=== PATIENT | female | born 1985 | race Caucasian/White ===

== ENCOUNTER 2019-01-31 19:55 | Emergency (ER) | payer OTHER ==
[2019-01-31] MEDS ORDERED: DOXYCYCLINE 100 MG CAP PO ONE (20:54)
[2019-01-31] MEDS ORDERED: SMZ./TMP. 800/160 MG TABLET ONE (20:54)
[2019-01-31] MEDS ORDERED: LIDOCAINE 1% W/EPI 1:100,000 MDV 50 ML VIAL ONE (20:55)
--- NOTE | 2019-01-31 21:28 | ER ---
Nurse's Notes [facility] Name: Zuleyka De La Cruz Age: 34 yrs Sex: Female : 1985 Arrival Date: 01/31/2019 Time: 19:59 Bed 7 Private MD: Aaron Lopez E Diagnosis: Cutaneous abscess of buttock;Cellulitis of buttock Presentation: 01/31 20:05 Presenting complaint: Patient states: "I got bit by an ant and now its really infected" aj1 Reports abscess to her left butt cheek. Reports fever for the past 3 days. Transition of care: patient was not received from another setting of care. Onset of symptoms was January 2019. Risk Assessment: Do you want to hurt yourself or someone else? Patient reports no desire to harm self or others. Initial Sepsis Screen: Does the patient meet any 2 criteria? HR > 90 bpm. No. Patient's initial sepsis screen is negative. Does the patient have a suspected source of infection? Yes: Skin breakdown/wound. Care prior to arrival: None. 20:05 Method Of Arrival: Ambulatory aj 20:05 Acuity: ADRY 4 aj1 Triage Assessment: 20:07 General: Appears in no apparent distress. comfortable, Behavior is calm, cooperative, aj1 appropriate for age. Pain: Complains of pain in buttocks Pain currently is 10 out of 10 on a pain scale. Neuro: Level of Consciousness is awake, alert, obeys commands. Cardiovascular: Patient's skin is warm and dry. Respiratory: Airway is patent Respiratory effort is even, unlabored, Respiratory pattern is regular, symmetrical. 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 - Social history:: Smoking status: Patient/guardian denies using tobacco. - Ebola Screening: : Patient denies travel to an Ebola-affected area in the 21 days before illness onset. - Family history:: not pertinent. Screenin:25 Abuse screen: Denies threats or abuse. Denies injuries from another. Nutritional rr5 screening: No deficits noted. Tuberculosis screening: No symptoms or risk factors identified. Fall Risk None identified. Total Willingham Fall Scale indicates No Risk (0-24 pts). Assessment: 22:05 General: Appears in no apparent distress. Behavior is calm, cooperative, appropriate ea for age. Pain: Complains of pain in left gluteus soraya. Neuro: Level of Consciousness is awake, alert, obeys commands, Oriented to person, place, time, situation. Cardiovascular: Patient's skin is warm and dry. Respiratory: Airway is patent Respiratory effort is even, unlabored, Respiratory pattern is regular, symmetrical. Derm: Abscess located on left gluteus soraya is half dollar sized, is red, is raised. 22:27 Reassessment: Patient appears in no apparent distress at this time. Patient is alert, rr5 oriented x 3, equal unlabored respirations, skin warm/dry/pink. discharge instruction given and explained without complaints made. verbalized understanding. Patient states feeling better. Patient states symptoms have improved. Vital Signs: 20:07 BP 125 / 87; Pulse 103; Resp 20; Temp 98.1; Pulse Ox 99% on R/A; Weight 83.91 kg (R); aj1 Height 5 ft. 3 in. (160.02 cm) (R); Pain 10/10; 21:00 BP 118 / 70; Pulse 95; Resp 17; Pulse Ox 98% ; Pain 5/10; rr5 22:25 BP 121 / 67; Pulse 85; Resp 17; Pulse Ox 99% ; Pain 0/10; rr5 20:07 Body Mass Index 32.77 (83.91 kg, 160.02 cm) aj1 ED Course: 19:59 Patient arrived in ED. mr 19:59 Aaron Lopez MD is Private Physician. mr 20:06 Triage completed. aj1 20:07 Arm band placed on Patient placed in waiting room, Patient notified of wait time. aj1 20:32 Amanuel Webb MD is Attending Physician. opal 20:33 Rubin Gupta RN is Primary Nurse. rr5 21:00 Patient has correct armband on for positive identification. Placed in gown. Bed in low rr5 position. Call light in reach. Side rails up X2. 21:25 Aaron Lopez MD is Referral Physician. opal 21:25 Oren Caldera MD is Referral Physician. [facility] 22:05 Assist provider with I \\T\\ D: of an abscess on left left buttock Set up I\\T\\D tray. rr 5 Performed by Amanuel Webb MD Culture sent to lab. Wound packed. iodoform gauze, Dressing with Neosporin and 4X4s, tape Patient tolerated well. 22:30 Patient did not have IV access during this emergency room visit. rr5 Administered Medications: 20:59 Drug: Doxycycline 200 mg Route: PO; rr5 22:00 Follow up: Response: No adverse reaction rr5 20:59 Drug: Bactrim (160 mg-800 mg (DS) 1 tablet Route: PO; rr5 22:00 Follow up: Response: No adverse reaction rr5 22:05 Drug: Lidocaine-Epinephrine -1%: (1:100,000) 10 ml {Note: given by dr. webb.} rr5 Volume: 20 ml; Route: Infiltration; Outcome: 21:25 Discharge ordered by MD. [facility] 22:30 Discharged to home ambulatory. rr5 22:30 Condition: stable 22:30 Discharge instructions given to patient, Instructed on discharge instructions, follow up and referral plans. medication usage, Demonstrated understanding of instructions, follow-up care, medications, Prescriptions given X 3. 22:31 Patient left the ED. rr5 Addendum: 02/04/2019 09:55 Addendum: Culture Results: Positive wound culture. No further action required. Bacteria h b sensitive to prescribed antibiotic. Signatures: Abena Lucas, RN RN Amanuel Rico MD MD cha Rivera, Mary Katja Redding RN RN hb Antunez, Elena, RN RN ea Roque, Raymond, RN RN rr5
--- NOTE | 2019-01-31 21:29 | EDPHYS ---
Physician Documentation [facility] Name: Zuleyka De La Cruz Age: 34 yrs Sex: Female : 1985 Arrival Date: 01/31/2019 Time: 19:59 Bed 7 Private MD: Aaron Lopez E ED Physician Amanuel Webb HPI: 01/31 20:55 This 34 yrs old Female presents to ER via Ambulatory with complaints of opal Abscess. 20:55 The patient presents with an abscess of the left gluteus soraya. Description: The opal affected area is moderate sized, confluent. Onset: The symptoms/episode began/occurred 1 week(s) ago. Possible cause(s): fire ant bite. Associated signs and symptoms: The patient has no apparent associated signs or symptoms. Modifying factors: the symptoms are alleviated by remaining still, the symptoms are aggravated by movement, walking, pressure, sitting, squeezing the lesion and expressing the contents. Severity of symptoms: At their worst the symptoms were moderate, in the emergency department the symptoms are unchanged. The patient has not experienced similar symptoms in the past. 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 - Social history:: Smoking status: Patient/guardian denies using tobacco. - Ebola Screening: : Patient denies travel to an Ebola-affected area in the 21 days before illness onset. - Family history:: not pertinent. ROS: 20:55 Constitutional: Negative for fever, chills, and weight loss, Eyes: Negative for injury, opal pain, redness, and discharge, ENT: Negative for injury, pain, and discharge, Neck: Negative for injury, pain, and swelling, Cardiovascular: Negative for chest pain, palpitations, and edema, Respiratory: Negative for shortness of breath, cough, wheezing, and pleuritic chest pain, Abdomen/GI: Negative for abdominal pain, nausea, vomiting, diarrhea, and constipation, Back: Negative for injury and pain, : Negative for injury, bleeding, discharge, and swelling, MS/Extremity: Negative for injury and deformity, Neuro: Negative for headache, weakness, numbness, tingling, and seizure, Psych: Negative for depression, anxiety, suicide ideation, homicidal ideation, and hallucinations, Allergy/Immunology: Negative for hives, rash, and allergies, Endocrine: Negative for neck swelling, polydipsia, polyuria, polyphagia, and marked weight changes, Hematologic/Lymphatic: Negative for swollen nodes, abnormal bleeding, and unusual bruising. 20:55 Skin: Positive for cellulitis, swelling. Exam: 20:55 Constitutional: This is a well developed, well nourished patient who is awake, alert, opal and in no acute distress. Head/Face: Normocephalic, atraumatic. Eyes: Pupils equal round and reactive to light, extra-ocular motions intact. Lids and lashes normal. Conjunctiva and sclera are non-icteric and not injected. Cornea within normal limits. Periorbital areas with no swelling, redness, or edema. ENT: Nares patent. No nasal discharge, no septal abnormalities noted. Tympanic membranes are normal and external auditory canals are clear. Oropharynx with no redness, swelling, or masses, exudates, or evidence of obstruction, uvula midline. Mucous membranes moist. Neck: Trachea midline, no thyromegaly or masses palpated, and no cervical lymphadenopathy. Supple, full range of motion without nuchal rigidity, or vertebral point tenderness. No Meningismus. Chest/axilla: Normal chest wall appearance and motion. Nontender with no deformity. No lesions are appreciated. Cardiovascular: Regular rate and rhythm with a normal S1 and S2. No gallops, murmurs, or rubs. Normal PMI, no JVD. No pulse deficits. Respiratory: Lungs have equal breath sounds bilaterally, clear to auscultation and percussion. No rales, rhonchi or wheezes noted. No increased work of breathing, no retractions or nasal flaring. Back: No spinal tenderness. No costovertebral tenderness. Full range of motion. MS/ Extremity: Pulses equal, no cyanosis. Neurovascular intact. Full, normal range of motion. Neuro: Awake and alert, GCS 15, oriented to person, place, time, and situation. Cranial nerves II-XII grossly intact. Motor strength 5/5 in all extremities. Sensory grossly intact. Cerebellar exam normal. Normal gait. Psych: Awake, alert, with orientation to person, place and time. Behavior, mood, and affect are within normal limits. 20:55 Abdomen/GI: Inspection: abdomen appears normal, Bowel sounds: normal, Palpation: abdomen is soft and non-tender, in all quadrants, Liver: no appreciated palpable abnormalities, Hernia: not appreciated. 20:55 Skin: abscess, cellulitis, that is mild, injury, is not appreciated. Vital Signs: 20:07 BP 125 / 87; Pulse 103; Resp 20; Temp 98.1; Pulse Ox 99% on R/A; Weight 83.91 kg (R); aj1 Height 5 ft. 3 in. (160.02 cm) (R); Pain 10/10; 21:00 BP 118 / 70; Pulse 95; Resp 17; Pulse Ox 98% ; Pain 5/10; rr5 22:25 BP 121 / 67; Pulse 85; Resp 17; Pulse Ox 99% ; Pain 0/10; rr5 20:07 Body Mass Index 32.77 (83.91 kg, 160.02 cm) [facility] MDM: 20:32 Patient medically screened. [facility] 21:05 Data reviewed: vital signs, nurses notes. [facility] 01/31 20:55 Order name: Wound Culture [facility] 01/31 20:55 Order name: Dressing - Wound; Complete Time: 22:23 [facility] 01/31 20:55 Order name: Gloves, Sterile; Complete Time: 22:23 [facility] 01/31 20:55 Order name: Setup Suture Tray; Complete Time: 20:56 [facility] Administered Medications: 20:59 Drug: Doxycycline 200 mg Route: PO; rr5 22:00 Follow up: Response: No adverse reaction rr5 20:59 Drug: Bactrim (160 mg-800 mg (DS) 1 tablet Route: PO; rr5 22:00 Follow up: Response: No adverse reaction rr5 22:05 Drug: Lidocaine-Epinephrine -1%: (1:100,000) 10 ml {Note: given by dr. webb.} rr5 Volume: 20 ml; Route: Infiltration; Disposition: 01/31/19 21:25 Discharged to Home. Impression: Cutaneous abscess of buttock, Cellulitis of buttock. - Condition is Stable. - Discharge Instructions: Skin Abscess, Cellulitis, Adult, Incision and Drainage, Skin Abscess, [id number], Cellulitis, Adult, [id number], Incision and Drainage, Care After. - Prescriptions for Tylenol- Codeine #3 300-30 mg Oral Tablet - take 2 tablets by ORAL route every 6 hours As needed; 24 tablet. Bactrim DS 800- 160 mg Oral Tablet - take 1 tablet by ORAL route every 12 hours for 10 days; 20 tablet. Doxycycline Monohydrate 100 mg Oral Tablet - take 1 tablet by ORAL route every 12 hours for 10 days; 20 tablet. - Medication Reconciliation Form, Thank You Letter, Antibiotic Education, Prescription Opioid Use form. - Follow up: Aaron Lopez; When: 2 - 3 days; Reason: Recheck today's complaints, Continuance of care, Re-evaluation by your physician. Follow up: Oren Caldera; When: 1 - 2 days; Reason: Recheck today's complaints, Re-evaluation by your physician. - Problem is new. - Symptoms have improved. 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 Impression: Cutaneous abscess of buttock; rr5 Cellulitis of buttock. Condition is Stable. Discharge Instructions: Skin Abscess, Cellulitis, Adult, Incision and Drainage, Skin Abscess, [id number], Cellulitis, Adult, [id number], Incision and Drainage, Care After. Prescriptions for Tylenol-Codeine #3 300-30 mg Oral Tablet - take 2 tablets by ORAL route every 6 hours As needed; 24 tablet, Bactrim DS 800-160 mg Oral Tablet - take 1 tablet by ORAL route every 12 hours for 10 days; 20 tablet, Doxycycline Monohydrate 100 mg Oral Tablet - take 1 tablet by ORAL route every 12 hours for 10 days; 20 tablet. and Forms are Medication Reconciliation Form, Thank You Letter, Antibiotic Education, Prescription Opioid Use. Follow up: Aaron Lopez; When: 2 - 3 days; Reason: Recheck today's complaints, Continuance of care, Re-evaluation by your physician. Follow up: Oren Caldera; When: 1 - 2 days; Reason: Recheck today's complaints, Re-evaluation by your physician. Problem is new. Symptoms have improved. opal
[2019-01-31 23:06] VITALS: TEMP 98.1
[2019-01-31 23:09] VITALS: BP 121/67; O2SAT 99
== END 2019-01-31 22:31 | disposition home or self-care (01) ==
LOC: ER 19:55
DX: L02.31 Cutaneous abscess of buttock (principal); L03.317 Cellulitis of buttock; Z88.1 Allergy status to other antibiotic agents
CPT/HCPCS: 87070; 87077; 87186; 87205; 99284

== ENCOUNTER 2022-02-09 13:49 | Emergency (ER) | payer OTHER ==
--- OUTSIDE RECORDS SUMMARY | 2022-02-09 13:55 | XMS REPORT | Continuity of Care Document ---
:1985 Author Organization [facility] t Address [address] [place] [address] Care Team Providers Name Role Phone Fer Dinero Attending Clinician Unavailable Provider, [facility] Attending Clinician Unavailable Garry BLOUNT, Karen Boateng Attending Clinician Hayley Mercado Attending Clinician HAYLEY KELLY Attending Clinician Unavailable Doctor Unassigned, [place] Attending Clinician Unavailable GISELA STUBBS Attending Clinician Unavailable Lab, Adc Fam Pob I Attending Clinician Unavailable Gisela Frank Attending Clinician Fer Dinero Admitting Clinician Unavailable Physician, No Primary or Family Admitting Clinician Unavaila ble Payers Payer Name Policy Type Policy Number Effective Date Expiration Date S ource Problems Condition Condition Condition Status Onset Resolution Last Treating Co mments Source Name Details Category Date Date Treatment Clinician Date No known No known Disease Unive rs active active ity of problems problems [facility] Allergies, Adverse Reactions, Alerts Allergy Allergy Status Severity Reaction(s) Onset Inactive Treating Comm ents Source Name Type Date Date Clinician Sulfa DA Active IN HIVES [facility] (Sulfona [address] [place] mide 00:00: [facility] Antibiot 00 are ics) Medical [place] Sulfa Propensi Active Hives Univers Dyne ty to 607 ity of adverse 00:00: [place] reaction 00 [facility] SULFA DRUG Active High Hives Univers DYNE 6-07 ity of 00:00: [place] 00 [facility] NO KNOWN Drug Active [facility] ALLERGIE Class ity of S [facility] Social History Social Habit Start Date Stop Date Quantity Comments Source Exposure to Not sure [facility] SARS-CoV-2 (event) Medica l [place] Tobacco use and 2020-10-26 2020-10-26 Never used [facility] exposure 00:00:00 00:00:00 [facility] Branch Sex Assigned At [birth year] [facility] 00:00:00 00:00:00 [facility] Branch Smoking Status Start Date Stop Date Source Never smoker [facility] Unknown if ever smoked [facility] Medications Ordered Filled Start Stop Current Ordering Indication Dosage Frequency Signature Comments Components Source Medication Medication Date Date Medication? Clinician (SIG) Name Name AlfonsoN 2020- No [id number] Take by [facility] ISolone 10-26 mouth ity of mg tablets 00:00: 04:59 SEE-INSTRU [place] 00 :00 CTIONS for Medical 6 days. Branch follow package directions SERTraline 2021- No 50mg Take 50 mg Univers (ZOLOFT) 50 10-19 by mouth ity of mg tablet 00:00: 04:59 daily. [place] 00 :00 [facility] SERTraline 2021- No 50mg Take 50 mg Univers (ZOLOFT) 50 10-19 by mouth ity of mg tablet 00:00: 04:59 daily. [place] 00 :00 [facility] bromphenira 2020- No [id number] 5mL Take 5 mL Univers mine-pseudo 10-19 by mouth 4 i ty of ephedrine-D 00:00: 04:59 (four) Rol[place] as M (BROMFED 00 :00 times Medical DM) 2-30-10 daily as Bran ch mg/5 mL needed for syrup Congestion /Allergies or Cough for up to 10 days. bromphenira 2020- No [id number] 5mL Take 5 mL Univers mine-pseudo 10-1918 by mouth 4 i ty of ephedrine-D 00:00: 04:59 (four) [place] as M (BROMFED 00 :00 times Medical DM) 2-30-10 daily as Bran ch mg/5 mL needed for syrup Congestion /Allergies or Cough for up to 10 days. amoxicillin 2020- No [id number] 500mg Take 1 Univers 500 mg 10-19 tablet by ity of tablet 00:00: 04:59 mouth 2 [place] 00 :00 (two) Medical times [place] daily for 7 days. amoxicillin 2020- No [id number] 500mg Take 1 Univers 500 mg 10-19 tablet by ity of tablet 00:00: 04:59 mouth 2 [place] 00 :00 (two) Medical times [place] daily for 7 days. Vital Signs Vital Name Observation Time Observation Value Comments Source Body weight 2020-10-26 20:12:00 89.359 kg [facility] BMI 2020-10-26 20:12:00 34.90 kg/m2 [facility] Oxygen saturation in 2020-10-26 20:12:00 99 /min [facility] Arterial blood by [facility] Pulse oximetry Branch Systolic blood 2020-10-26 20:12:00 130 mm[Hg] Univer [facility]ity [facility] Diastolic blood 2020-10-26 20:12:00 69 mm[facility]Hg] [facility] Heart rate 2020-10-26 20:12:00 91 /min [facility] Body temperature 2020-10-26 20:12:00 37.22 [facility] Respiratory rate 2020-10-26 20:12:00 17 /min [facility] Body height 2020-10-26 20:12:00 160 cm [facility] Systolic blood 2020-10-19 16:48:00 137 mm[Hg] Univer sity [facility] Diastolic blood 2020-10-19 16:48:00 77 mm[Hg] [facility] Body temperature 2020-10-19 16:48:00 36.89 [facility] Respiratory rate 2020-10-19 16:48:00 20 /min [facility] Body height 2020-10-19 16:48:00 160 cm [facility] Body weight 2020-10-19 16:48:00 89.812 kg [facility] BMI 2020-10-19 16:48:00 35.07 kg/m2 [facility] Oxygen saturation in 2020-10-19 16:48:00 98 /min University Arterial blood by [facility] Pulse oximetry Branch Procedures Procedure Date / Time Performed Performing Clinician Jesu el [id number] 2022-01-12 00:00:00 YUE [facility] [id number] 2022-01-12 00:00:00 YUE [facility] [id number] 2022-01-12 00:00:00 [facility] [id number] 2022-01-12 00:00:00 [facility] [place] [id number] 2022-01-12 00:00:00 [facility] [place] ASSIGNMENT OF BENEFITS 2020-10-19 16:17:45 Doctor Unassigned, No [facility] Encounters Start End Encounter Admission Attending Care Care Encounter Source Date/Time Date/Time Type Type Clinicians Facility Department ID 2022-01-12 2022-01-12 Inpatient Fer Arriaga [facility] GENS [id number] [facility] 09:37:00 18:29:00 35 [facility] 2022-01-05 2022-01-12 Outpatient Fer Arriaga [facility] ZZZB [id number] [facility] 08:00:00 09:35:00 64 [facility] 2020-10-26 2020-10-26 Urgent Provider, [facility] [id number] Univers 15:08:26 15:28:26 Care Garry [employer] [id number] 0 ity of Hayley Kelly [id number] [place] Peter [phone] [address] One 2020-10-26 2020-10-26 Outpatient [facility] [id number] Univers 15:20:00 15:20:00 [id number] ity of [facility] 2020-10-26 2020-10-26 Outpatient Saud KELLY [facility] [id number] Univers 15:00:00 15:00:00 HAYLEY davis [facility] 2020-10-19 2020-10-19 Urgent Provider, [facility] [id number] Univers 11:19:36 12:13:03 Care Hayley [facility] [id number] ity of [place] 4.2.7.2.686 Rolando as Professio [phone] [address] One 2020-10-19 2020-10-19 Outpatient [facility] [id number] Univers 11:00:00 11:00:00 [id number] susan [facility] 2020-10-19 2020-10-19 [facility] [id number] Univers 11:00:00 11:00:00 HAYLEY davis [facility] 2020-10-19 2020-10-19 Orders Doctor KIRAN [id number] Univers 00:00:00 00:00:00 Only Unassigned, FREYA [id number] ity of [place] [facility] 4.2.7.2.686 Rolando as [phone] [address] 2020-06-07 2020-06-07 [facility] [id number] Univers 19:00:00 19:00:00 GISELA susan [facility] 2020-06-07 2020-06-07 Laboratory Lab, Adc Fam Pob I [facility] [id number] Univers 11:43:21 12:03:21 Only Gisela Stubbs [id number] ity of [place] [id number] [place] as Professio [phone] [address] One 2020-06-07 2020-06-07 Letter Doctor KIRAN [id number] Univers 00:00:00 00:00:00 (Out) Unassigned, FREYA [id number] ity of [place] [facility] 4.2.7.2.686 Rolando as [phone] [place] [address] Branch Results Test Description Test Time Test Comments Results Result Comments Source SURGICAL 2022-01-14 10:27:00 Test Item Value Reference Range Interpretation Commnikko nts SURGICAL RUN DATE: (test 01/18/22 [facility] - LAB PAGE 1 RUN TIME: 1333 Specimen Inquiry RUN USER: INTERFACE code = PATIENT: SR) ALVINO LUJAN ACCT #: [id number] LOC: [facility] KRYSTLE Kilo #: [id number] AGE/SX: 36/F ROOM: [facility] RE01/12/22MARCUS DR: Fer Dinero MD : 83 BED: 1 DIS: 01/12/22 STATUS: DIS IN TLOC: SPEC #: [id number] RECD: 01/12/22731 STATUS: SOUT REQ #: [id number] SAGE: 01/12/221043 [facility] DR: Fer Dinero MD ENTERED: 01/12/22-1147 SP TYPE: SURGICAL OTHR DR: No Primary or Family Physician Leigh Bains MDORDERED: 83453/2, 25077/4, 48224, ANATOMIC SPEC HISTOLOGY: TISSUE ID BLK PCS HUSSAIN LEV / PROCEDURE DISPOSITION ____ ___ ___ ___ ___ STOMNT A 1 1 LIVER, NOS B 1 2 TISSUES: A. STOMAC H SUBTOTAL / TOTAL RESECTION NOT TUMOR/SLEEVE - Partial Stomach B. LIVER, NOS - Liver Biopsy ADDENDUM FINDINGS Addendum #1 Entered: 01/18/22188 This addendum is issued to report an immunohistochemica l stain for Helicobacter pylori isnegative (performed on specimen A with appropriate controls). Alessandra roman Signed SIGNATURE ON FILE Eric Griggs 01/18/22 7855 FINAL DIAGNOSIS A. STOMACH, PARTIA L, SLEEVE GASTRECTOMY:- Mild chronic gastritis. - An immunohistochemical stain for Helicobacter pylor i is pending and will be reported in an addendum. - Negative for intestinal metaplasia, dysplasia, and c arcinoma. B. LIVER, WEDGE BIOPSY:- No significant steatosis.- No significant fibrosis. Comment: The biops y shows no macrovesicular fat vacuoles and no ballooned hepatocytes. Mildpatchy nonspecific jaye l mononuclear inflammation without interface activity and nosignificant lobular inflammation is pres ent. A special stain for iron is negative. A PASwith diastase stain is negative for cytoplasmic inc lusions, a reticulin stain does notdemonstrate abnormal thickening of the cell plates, and a trichrome stain is negative forsignificant fibrosis (stage 0 of 4). CONTINUED ON NEXT PAGE RUN DATE: 01/18/22 [facility] - LAB PAGE 2 RUN TIME: 1333 Specimen Inquiry RUN USER: INTERFACE SPEC #: [id number] PATIENT: ALVINO LUJAN #[id number] (Continued) GROSS DESCRIPTION A. Receive d in formalin, labeled with the patient's name, date of and designatedspecimen A "partia l stomach". It consists of a portion of stomach that measures 14.5 cm intotal length with a maximu m diameter of 4.5 cm. The serosa is pink smooth with staplelining that runs longitudinally. The specimen is opened longitudinally, revealing a slightamount of dark brown gritty stomach fluid. The mucosal s urface is morales pink withunremarkable rugal folds. There is no discrete lesion grossly identified. The spec imen hasan average thickness of 0.4 cm. The specimen is sectioned and submitted representativelyin cassette A. B. Received in formalin, labeled with the patient's name, date of and designatedspeci men B "liver biopsy". It consists of a morales brown wedge shaped liver fragmentmeasuring 1.8 x 0.8 x 0.6 cm. The specimen is bisected, revealing a morales pink smooth cutsurface. The specimen is submitted en tirely in cassette B. KARISSA/marques Technical component performed at [facility] [facility], [facility], [address] Immunohistochemistry: This test was developed and its performanc echaracteristics determined by this laboratory. It has not been approved nordoes it need approval by the [place] FDA. Appropriate positive and negative controlsare reviewed and judged to be acceptable. [facility] s laboratory is certified undert Clinical Laboratory Improvement Amendments (CLIA-88) as qual [facility] high complexity clinical laboratory testing. MICROSCOPIC DESCRIPTION Unless gross onl y, the diagnosis is based upon microscopic examination. Stain ordered afterreview of H E slides. CLINICAL INFORMATION Obesity Signed SIGNATURE ON FILE AnsonEric arellano 01/14/22 102 7 END OF REPORT UR HCG [id number] 08:58:00 Test Item Value Reference Range Interpretation Comments UR HCG QUAL (test code = HCGQLU) NEGATIVE NEGATIVE COMPREHENSIVE METABOLIC [id number] 14:09:00 Test Item Value Reference Range Interpretation Comments SODIUM (test code = 138 mmol/L 136-145 N Please n ote: New NA) Reference Range Jun 2020 POTASSIUM (test 4.0 mmol/L 3.5-5.1 N code = K) CHLORIDE (test code 105 mmol/L 98-107 N Please n ote: New = CL) Reference Range Jun 2020 CARBON DIOXIDE 26 mmol/L 20-31 N Please note: New (test code = CO2) Reference Range Jun 2020 GLUCOSE (test code 85 mg/dL 74-106 N Please no te: New = GLU) Reference Range Jun 2020 BLOOD UREA NITROGEN 18 mg/dL 9-23 N Please n ote: New (test code = BUN) Reference Range Jun 2020 GLOMERULAR >=60 max >60 Units are FILTRATION RATE estimate mL/min mL/min/1. 73m2 The (test code = GFR) estimated glomerular filtration rate is computed usingpatient ra ce, age (>18), sex, and serum creatinin e. If anyof the ne eded data elements a re missing the Laboratory adriana ot compute an estimation of t he glomerular filtration rate . CREATININE (test 0.60 mg/dL 0.55-1.02 N Please note : New code = CREAT) Reference Rang e Jun 2020 TOTAL PROTEIN (test 6.7 g/dL 5.7-8.2 N Please n ote: New code = PROT) Reference Range Jun 2020 ALBUMIN (test code 4.2 g/dL 3.2-4.8 N Please no te: New = ALB) Reference Range Jun 2020 CALCIUM (test code 9.4 mg/dL 8.7-10.4 N Please no te: New = CA) Reference Range Jun 2020 BILIRUBIN TOTAL 0.6 mg/dL 0.3-1.2 N Please note: New (test code = BILT) Reference Range Jun 2020 SGOT/AST (test code 20 U/L <34 N Please n ote: New = AST) Reference Range Jun 2020 SGPT/ALT (test code 23 U/L 10-49 N Please n ote: New = ALT) Reference Range Jun 2020 ALKALINE 42 U/L 46-116 L Please note: Ne w PHOSPHATASE (test Reference Range Feb code = ALKP) 2020 URINALYSIS [id number] 14:00:00 Test Item Value Reference Range Interpretation Comments UA COLOR (test code = COLU) YELLOW DISCRIPT YELLOW UA APPEARANCE (test code = CLEAR DISCRIPT CLEAR APPU) UA GLUCOSE DIPSTICK (test NEGATIVE mg/dL NEGATIVE code = DGLUU) UA BILIRUBIN DIPSTICK (test NEGATIVE NEGATIVE code = BILU) UA KETONE DIPSTICK (test code 15 mg/dL NEGATIVE A = KETU) UA SPECIFIC GRAVITY (test 1.015 1.005-1.030 code = SGU) UA BLOOD DIPSTICK (test code NEGATIVE NEGATIVE = DARON) UA PH DIPSTICK (test code = 6.0 5.0-9.0 ARLETH) UA PROTEIN DIPSTICK (test NEGATIVE mg/dL NEGATIVE code = PROU) UA UROBILINOGEN DIPSTICK 0.2 mg/dL 0.2-1.0 (test code = URO) UA NITRITE DIPSTICK (test NEGATIVE NEGATIVE code = ALFREDITO) UA LEUKOCYTE ESTERASE NEGATIVE NEGATIVE DIPSTICK (test code = LEUU) PROTHROMBIN [id number] 13:53:00 Test Item Value Reference Range Interpretation Comments PROTHROMBIN TIME 13.0 SECONDS 10.3-12.9 H PATIENT (test code = PTP) INTERNATIONAL 1.14 INR UNIT 0.9-1.11 H The INR is us eful only NORMAL RATIO (test for monit oring code = INR) anticoagulant therapy.It may be unreliable in t he initial phase o f antigoagulation and in unstable patien ts. Indication for Anticoagulation Recommended INR 1. Prevention of v enous thomboembolism 2.0-3.0in high- risk patients; treat ment of venousthrombosi s and pulmonary embol ism aftera course o f heparin; preven tion of systemicembolis m in a variety of cond itions, including atria l fibrillation an d prothetic tissu e heart valves, 2. Pros thetic mechanical hear t valves; 2.5-3.5recurren t systemic emboli sm. THROMBOPLASTIN TIME [id number] 13:53:00 Test Item Value Reference Range Interpretation Comments THROMBOPLASTIN TIME 32.5 SECONDS 23.8-34.8 N INTERPRE TATIVE PARTIAL (test code = DATA: erapeutic PTT) range: Unfractionated heparin:55 - 80 seconds Argatroban:1.5 to 3 times the basel ine PTT CBC W/AUTO [id number] 13:42:00 Test Item Value Reference Range Interpretation Comments WHITE BLOOD CELL (test code = 8.3 x10 3/uL 4.8-10.8 N WBC) RED BLOOD CELL (test code = 4.68 x10 6/uL 4.20-5.40 N RBC) HEMOGLOBIN (test code = HGB) 13.9 g/dL 12.0-16.0 N HEMATOCRIT (test code = HCT) 39.8 % 37.0-47.0 N MEAN CELL VOLUME (test code = 85.0 fL 81.0-99.0 N MCV) MEAN CELL HGB (test code = MCH) 29.7 pg 27-31 N MEAN CELL HGB CONCENTRATION 34.9 G/DL 33-36.5 N (test code = MCHC) RED CELL DISTRIBUTION WIDTH 11.8 % 12.9-16.9 L (test code = RDW) PLATELET COUNT (test code = 270 x10 3/uL 150-440 N PLT) MEAN PLATELET VOLUME (test code 10.3 fL 8.9-12.4 N = MPV) NEUTROPHIL % (test code = NT%) 66.6 % 42.2-75.2 N LYMPHOCYTE % (test code = LY%) 24.4 % 20.5-51.1 N MONOCYTE % (test code = MO%) 7.0 % 1.7-9.3 N EOSINOPHIL % (test code = EO%) 1.3 % 0.0-7.0 N BASOPHIL % (test code = BA%) 0.5 % 0-2.5 N NEUTROPHIL # (test code = NT#) 5.53 x10 3/uL 1.80-7.70 N LYMPHOCYTE # (test code = LY#) 2.03 x10 3/uL 1.00-4.80 N MONOCYTE # (test code = MO#) 0.58 x10 3/uL 0.00-0.80 N EOSINOPHIL # (test code = EO#) 0.11 x10 3/uL 0.00-0.45 N BASOPHIL # (test code = BA#) 0.04 x10 3/uL 0.0-0.20 N
[2022-02-09] MEDS ORDERED: MORPHINE 2 MG/ML SYR ONE (14:17)
[2022-02-09] MEDS ORDERED: ONDANSETRON 4 MG/2 ML VIAL ONE (14:18)
[2022-02-09] MEDS ORDERED: NA CHLORIDE 0.9% 1,000 ML ONE ×2 (14:18→16:24)
[2022-02-09 14:39] LABS: Absolute Lymphocytes (CBC) 1.7 K/uL (0.7-4.9); Hematocrit 41.2 % (36.0-45.0); Lymphocytes % 27.9 % (15.3-44.8); MCV 88.5 fL (80-100); MPV 8.8 fL (7.6-11.3); RBC Red Blood Cell Count 4.66 M/uL (3.86-4.86)
[2022-02-09 14:56] LABS: Albumin 3.7 g/dL (3.4-5.0); Bilirubin Total 0.6 mg/dL (0.2-1.0); Potassium 3.7 mmol/L (3.5-5.1)
[2022-02-09 15:38] LABS: Urine Blood Negative (Negative); Urine Glucose Negative (Negative); Urine Protein Negative (Negative); Urine Specific Gravity 1.025 (1.005-1.030)
--- NOTE | 2022-02-09 15:42 | RAD REPORT ---
EXAM DESCRIPTION: CT - Abdomen Pelvis W Contrast - 02/09/2022 3:25 pm CLINICAL HISTORY: Abdominal pain. COMPARISON: None. TECHNIQUE: Computed axial tomography of the abdomen and pelvis was obtained. 100 cc Isovue-300 is ad ministered intravenously. Oral contrast was given. All CT scans are performed using dose optimization technique as appropriate and may include automated exposure control or mA/KV adjustment according to patient size. FINDINGS: Tiny low-density lesion within spleen. The liver, pancreas, adrenals kidneys are unremarkable. Postsurgical changes involve the stomach. No obstruction. Normal appendix No evidence of diverticulitis. No adnexal mass Small umbilical hernia IMPRESSION: Tiny low-density lesion spleen is nonspecific but probably benign
[2022-02-09 15:51] LABS: Urine Specific Gravity/Preg 1.025 (1.005-1.030)
[2022-02-09] MEDS ORDERED: METOCLOPRAMIDE 10 MG/2mL INJ ONE (16:01)
[2022-02-09] MEDS ORDERED: DIPHENHYDRAMINE 50 MG/ML VIAL ONE (16:01)
[2022-02-09] MEDS ORDERED: MULTIVITAMINS 10 ML VIAL (INJ) IV ONE (16:22)
[2022-02-09] MEDS ORDERED: THIAMINE 200 MG/2 ML INJ ONE (16:22)
[2022-02-09] MEDS ORDERED: dexAMETHasone 10 MG/ML VIAL ONE (16:22)
[2022-02-09] MEDS ORDERED: FOLIC ACID 5 MG/ML VIAL ONE (16:23)
--- NOTE | 2022-02-09 19:18 | EDPHYS ---
Physician Documentation [facility] Name: Zuleyka De La Cruz Age: 37 yrs Sex: Female : 1985 Arrival Date: 02/09/2022 Time: 13:53 Bed 10 Private MD: ED Physician Ryan Segura HPI: 02/09 14:13 This 37 yrs old Female presents to ER via Ambulatory with complaints of Abdominal Pain, jmm Nausea. 14:13 The patient presents with abdominal pain. Onset: The symptoms/episode began/occurred jmm gradually, 1 day(s) ago. The symptoms radiate to This is a 37 year old female with a history of depression that presents to the ED with complaints of epigastric abdominal pain, nausea beginning yesterday. Patient is 1 month s/p gastric sleeve. . 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 - Social history:: Smoking status: Patient denies any tobacco usage or history of. ROS: 23:25 Constitutional: Negative for fever, chills, and weight loss, Cardiovascular: Negative jmm for chest pain, palpitations, and edema, Respiratory: Negative for shortness of breath, cough, wheezing, and pleuritic chest pain. 23:25 Abdomen/GI: Positive for abdominal pain, nausea. 23:25 All other systems are negative. Exam: 23:25 Constitutional: This is a well developed, well nourished patient who is awake, alert, jmm and in no acute distress. Head/Face: atraumatic. Eyes: EOMI, no conjunctival erythema appreciated ENT: Moist Mucus Membranes Neck: Trachea midline, Supple Chest/axilla: Normal chest wall appearance and motion. Cardiovascular: Regular rate and rhythm. No edema appreciated Respiratory: Normal respirations, no respiratory distress appreciated 23:25 Back: Normal ROM Skin: General appearance color normal MS/ Extremity: Moves all extremities, no obvious deformities appreciated, no edema noted to the lower extremities Neuro: Awake and alert Psych: Behavior is normal, Mood is normal, Patient is cooperative and pleasant 23:25 Abdomen/GI: Inspection: abdomen appears normal, Bowel sounds: normal, Palpation: soft, mild abdominal tenderness, in the epigastric area. Vital Signs: 13:58 BP 135 / 91; Pulse 84; Resp 16; Temp 97.8(O); Pulse Ox 100% on R/A; Weight 88 kg (R); iw Height 5 ft. 3 in. (160.02 cm); Pain 10/10; 15:42 BP 128 / 82; Pulse 81; Resp 16; Pulse Ox 99% on R/A; Pain 2/10; hb 16:06 BP 147 / 89; Pulse 91; Resp 16; Pulse Ox 100% on R/A; Pain 3/10; hb 18:00 BP 136 / 84; Pulse 86; Resp 15; Pulse Ox 99% on R/A; hb 13:58 Body Mass Index 34.37 (88.00 kg, 160.02 cm) iw MDM: 14:13 Patient medically screened. [facility] 19:16 Data reviewed: vital signs, nurses notes. Counseling: I had a detailed discussion with susanna the patient and/or guardian regarding: the historical points, exam findings, and any diagnostic results supporting the discharge/admit diagnosis, the need for outpatient follow up, to return to the emergency department if symptoms worsen or persist or if there are any questions or concerns that arise at home. 23:29 ED course: I discussed the patient with Dr. Dinero whom recommended a banana bag, decadron. [facility] Patient was able to tolerate PO. Will follow up with patient tomorrow for reevaluation. . 02/09 14:14 Order name: CBC with Diff; Complete Time: 14:44 [facility] 02/09 14:14 Order name: CMP; Complete Time: 15:07 [facility] 02/09 14:14 Order name: Lipase; Complete Time: 15:07 [facility] 02/09 14:14 Order name: CT Abd/Pelvis - PO and IV Contrast; Complete Time: 15:43 [facility] 02/09 15:39 Order name: Urine Dipstick-Ancillary; Complete Time: 15:40 [facility] 02/09 15:43 Order name: Urine --Ancillary (enter results); Complete Time: 16:04 02/09 14:14 Order name: IV Saline Lock; Complete Time: 14:32 [facility] 02/09 14:14 Order name: Labs collected and sent; Complete Time: 14:32 [facility] 02/09 15:34 Order name: Urine Dipstick-Ancillary (obtain specimen); Complete Time: 15:57 [facility] 02/09 15:34 Order name: Urine Test (obtain specimen); Complete Time: 15:57 [facility] 02/09 18:44 Order name: PO challenge; Complete Time: 18:57 [facility] Administered Medications: 14:32 Drug: Zofran (Ondansetron) 4 mg Route: IVP; Site: right antecubital; hb 15:42 Follow up: Response: No adverse reaction hb 14:32 Drug: morphine 2 mg Route: IVP; Infused Over: 4 mins; Site: right antecubital; hb 15:39 Follow up: Response: No adverse reaction hb 14:32 Drug: NS 0.9% 1000 ml Route: IV; Rate: 1 bolus; Site: right antecubital; hb 16:00 Follow up: Response: No adverse reaction; IV Status: Completed infusion; IV Intake: hb 1000ml 16:06 Drug: Reglan (metoCLOPramide) 10 mg Route: IVP; Site: right antecubital; hb 16:32 Follow up: Response: No adverse reaction hb 16:06 Drug: diphenhydrAMINE 12.5 mg Route: IVP; Site: right antecubital; hb 16:32 Follow up: Response: No adverse reaction hb 16:31 Drug: Banana Bag - (NS 0.9% 1000 ml, foLIC Acid 1 mg, Thiamine 100 mg, Multivitamin 1 hb amp) Route: IV; Rate: calculated rate; Site: right antecubital; 18:57 Follow up: Response: No adverse reaction; IV Status: Completed infusion; IV Intake: hb 1000ml 16:32 Drug: Decadron - Dexamethasone 10 mg Route: IVP; Site: right antecubital; hb 18:57 Follow up: Response: No adverse reaction hb Disposition: 02/10 19:29 Co-signature as Attending Physician, Ryan Segura MD. rn Disposition Summary: 02/09/22 19:17 Discharge Ordered Location: Home [facility] Condition: Stable [facility] Diagnosis - Epigastric pain [facility] Followup: [facility] - With: Private Physician - When: 2 - 3 days - Reason: Recheck today's complaints, Continuance of care, Re-evaluation by your physician Discharge Instructions: - Discharge Summary Sheet [facility] - Abdominal Pain, Adult [facility] Forms: - Medication Reconciliation Form [facility] - Thank You Letter [facility] - Antibiotic Education [facility] - Prescription Opioid Use [facility] Prescriptions: - Reglan 10 mg Oral Tablet - take 1 tablet by ORAL route every 6 hours take 30 minutes before meals and at [facility] bedtime; 20 tablet; Refills: 0, Product Selection Permitted Signatures: Dispatcher [employer] EDMS Rod Hawley PA PA jmm Williams, Irene, BONNIE RN Ryan Antoine MD MD rn Baxter, Heather, RN RN
--- NOTE | 2022-02-09 19:18 | ER ---
Nurse's Notes [facility] Name: Zuleyka De La Cruz Age: 37 yrs Sex: Female : 1985 Arrival Date: 02/09/2022 Time: 13:53 Bed 10 Private MD: Diagnosis: Epigastric pain Presentation: 02/09 13:58 Chief complaint: Patient states: I had the gastric sleeve about a month ago and I think iw something isn't right with it. Yesterday I started throwing up and I am in a lot of pain in my stomach and back. I can not stop throwing up. Coronavirus screen: At this time, the client does not indicate any symptoms associated with coronavirus-19. Ebola Screen: No symptoms or risks identified at this time. Initial Sepsis Screen: Does the patient meet any 2 criteria? No. Patient's initial sepsis screen is negative. Does the patient have a suspected source of infection? No. Patient's initial sepsis screen is negative. Risk Assessment: Do you want to hurt yourself or someone else? Patient reports no desire to harm self or others. Onset of symptoms was February 08, 2022. 13:58 Method Of Arrival: Ambulatory iw 13:58 Acuity: ADRY 3 iw 13:58 Care prior to arrival: Medication(s) given: zofran 8 mg. iw Triage Assessment: 14:00 General: Appears in no apparent distress. uncomfortable, Behavior is calm, cooperative, iw appropriate for age. Pain: Complains of pain in abdomen Pain radiates to back. EENT: No deficits noted. No signs and/or symptoms were reported regarding the EENT system. Neuro: No deficits noted. Cardiovascular: No deficits noted. Respiratory: No deficits noted. GI: Abdomen is round non-distended, Bowel sounds present X 4 quads. Abd is soft X 4 quads Abdomen is tender to palpation X 4 quads. Reports lower abdominal pain, upper abdominal pain, nausea, vomiting. : No deficits noted. No signs and/or symptoms were reported regarding the genitourinary system. Derm: No deficits noted. No signs and/or symptoms reported regarding the dermatologic system. Musculoskeletal: No deficits noted. No signs and/or symptoms reported regarding the musculoskeletal system. 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 - Social history:: Smoking status: Patient denies any tobacco usage or history of. Screenin:32 Abuse screen: Denies threats or abuse. Denies injuries from another. Nutritional hb screening: No deficits noted. Tuberculosis screening: No symptoms or risk factors identified. Fall Risk None identified. Assessment: 14:32 General: SEE TRIAGE ASSESSMENT. hb 15:27 Reassessment: Patient appears in no apparent distress at this time. Patient and/or hb family updated on plan of care and expected duration. Pain level reassessed. Patient is alert, oriented x 3, equal unlabored respirations, skin warm/dry/pink. 16:32 Reassessment: Patient appears in no apparent distress at this time. Patient and/or hb family updated on plan of care and expected duration. Pain level reassessed. Patient is alert, oriented x 3, equal unlabored respirations, skin warm/dry/pink. 18:20 Reassessment: Patient appears in no apparent distress at this time. Patient and/or hb family updated on plan of care and expected duration. Pain level reassessed. Patient is alert, oriented x 3, equal unlabored respirations, skin warm/dry/pink. 18:56 Reassessment: Apple juice provided for PO challenge. hb Vital Signs: 13:58 BP 135 / 91; Pulse 84; Resp 16; Temp 97.8(O); Pulse Ox 100% on R/A; Weight 88 kg (R); iw Height 5 ft. 3 in. (160.02 cm); Pain 10/10; 15:42 BP 128 / 82; Pulse 81; Resp 16; Pulse Ox 99% on R/A; Pain 2/10; hb 16:06 BP 147 / 89; Pulse 91; Resp 16; Pulse Ox 100% on R/A; Pain 3/10; hb 18:00 BP 136 / 84; Pulse 86; Resp 15; Pulse Ox 99% on R/A; hb 13:58 Body Mass Index 34.37 (88.00 kg, 160.02 cm) iw ED Course: 13:53 Patient arrived in ED. rg4 13:58 Rod Hawley PA is PHCP. jmm 13:59 Ryan Segura MD is Attending Physician. m 14:00 Triage completed. iw 14:00 Arm band placed on right wrist. iw 14:06 Katja Redding, RN is Primary Nurse. hb 14:29 Inserted saline lock: 20 gauge in right antecubital area, using aseptic technique. hb Blood collected. 14:32 Patient has correct armband on for positive identification. hb 15:27 CT Abd/Pelvis - PO and IV Contrast In Process Unspecified. EDMS Administered Medications: 14:32 Drug: Zofran (Ondansetron) 4 mg Route: IVP; Site: right antecubital; hb 15:42 Follow up: Response: No adverse reaction hb 14:32 Drug: morphine 2 mg Route: IVP; Infused Over: 4 mins; Site: right antecubital; hb 15:39 Follow up: Response: No adverse reaction hb 14:32 Drug: NS 0.9% 1000 ml Route: IV; Rate: 1 bolus; Site: right antecubital; hb 16:00 Follow up: Response: No adverse reaction; IV Status: Completed infusion; IV Intake: hb 1000ml 16:06 Drug: Reglan (metoCLOPramide) 10 mg Route: IVP; Site: right antecubital; hb 16:32 Follow up: Response: No adverse reaction hb 16:06 Drug: diphenhydrAMINE 12.5 mg Route: IVP; Site: right antecubital; hb 16:32 Follow up: Response: No adverse reaction hb 16:31 Drug: Banana Bag - (NS 0.9% 1000 ml, foLIC Acid 1 mg, Thiamine 100 mg, Multivitamin 1 hb amp) Route: IV; Rate: calculated rate; Site: right antecubital; 18:57 Follow up: Response: No adverse reaction; IV Status: Completed infusion; IV Intake: hb 1000ml 16:32 Drug: Decadron - Dexamethasone 10 mg Route: IVP; Site: right antecubital; hb 18:57 Follow up: Response: No adverse reaction hb Medication: 14:32 VIS not applicable for this client. hb Intake: 16:00 IV: 1000ml; Total: 1000ml. hb 18:57 IV: 1000ml; Total: 2000ml. hb Outcome: 19:17 Discharge ordered by MD. mullins 19:31 Patient left the ED. hb Signatures: Dispatcher [employer] EDRod Rajput PA PA jmm Williams, Irene, RN Katja Rinaldi RN RN Candy Gamino [id number] Corrections: (The following items were deleted from the chart) 16:33 16:32 Reassessment: Patient appears in no apparent distress at this time. Patient hb and/or family updated on plan of care and expected duration. Pain level reassessed. Patient is alert/active/playful, equal unlabored respirations, skin warm/dry/pink. hb
[2022-02-11 10:52] VITALS: TEMP 97.8
[2022-02-11 10:57] VITALS: BP 136/84; O2SAT 99
== END 2022-02-09 19:31 | disposition home or self-care (01) ==
LOC: ER 13:49
DX: R10.13 Epigastric pain (principal); Z98.84 Bariatric surgery status; Z88.1 Allergy status to other antibiotic agents
CPT/HCPCS: 96365; 96361; 85025; 36415; 81025; 81003; 83690; 80053; 74177; 96375; 99284; 96366; Q9967; J2765; J3411; J1200; J1100; J2270; J7030 ×2; J2405

== ENCOUNTER 2022-09-24 22:08 | Emergency (ER) | payer OTHER ==
--- OUTSIDE RECORDS SUMMARY | 2022-09-24 22:11 | XMS REPORT | Continuity of Care Document ---
:[address] [facility] t Address [address] [place] [address] Care Team Providers Name Role Phone PCP, PATIENT DOES NOT HAVE A Primary Care Physician Unavaila ble Fer Dinero Attending Clinician Unavailable Provider, [facility] Attending Clinician Unavailable Garry BLOUNT, Altagraciaful A Attending Clinician Robin SASH FINISHERHayley Franklin Attending Clinician HAYLEY KELLY Attending Clinician Unavailable Doctor Unassigned, [place] Attending Clinician Unavailable GISELA STUBBS Attending Clinician Unavailable Lab, Adc Fam Pob I Attending Clinician Unavailable Gisela Frank Attending Clinician Fer Dinero Admitting Clinician Unavailable Physician, No Primary or Family Admitting Clinician Unavaila henry Payers Payer Name Policy Type Policy Number Effective Date Expiration Date S ource Problems Condition Condition Condition Status Onset Resolution Last Treating Co mments Source Name Details Category Date Date Treatment Clinician Date No known No known Disease Unive rs active active ity of problems problems [facility] Branch Allergies, Adverse Reactions, Alerts Allergy Allergy Status Severity Reaction(s) Onset Inactive Treating Comm ents Source Name Type Date Date Clinician Sulfa DA Active [place] HIVES [facility] (Sulfona 8-24 [place] mide 00:00: [facility] Antibiot 00 are ics) Medical [place] Sulfa Propensi Active Hiv Univers Dyne ty to 6-07 ity of adverse 00:00: [place] reaction 00 Medical s Branch SULFA DRUG Active High Hives Univers DYNE 10-19 ity of 00:00: [place] 00 Medical Branch NO KNOWN Drug Active Univers ALLERGIE Class ity of S [facility] Social History Social Habit Start Date Stop Date Quantity Comments Source Exposure to Not sure [facility] SARS-CoV-2 (event) Medica l Branch Tobacco use and 2020-10-26 2020-10-26 Never used [facility] exposure 00:00:00 00:00:00 Medical Branch Sex [birth year] [facility] 00:00:00 00:00:00 Medical Branch Smoking Status Start Date Stop Date Source Never smoker [facility] Unknown if ever smoked [facility] Medications Ordered Filled Start Stop Current Ordering Indication Dosage Frequency Signature Comments Components Source Medication Medication Date Date Medication? Clinician (SIG) Name Name methylPREDN 2020- No [id number] Take by Univers ISolone 10-26 mouth ity of mg tablets 00:00: 04:59 SEE-INSTRU [place] 00 :00 CTIONS for Medical 6 days. Branch follow package directions SERTraline 2021- No 50mg Take 50 mg Univers (ZOLOFT) 50 10-1908 by mouth ity of mg tablet 00:00: 04:59 daily. [place] 00 :00 Medical Branch SERTraline 2021- No 50mg Take 50 mg Univers (ZOLOFT) 50 10-1908 by mouth ity of mg tablet 00:00: 04:59 daily. [place] 00 :00 Medical Branch bromphenira 2020- No [id number] 5mL Take 5 mL Univers mine-pseudo 10-19 by mouth 4 i ty of ephedrine-D 00:00: 04:59 (four) Rol[place] as M (BROMFED 00 :00 times Medical DM) 2-30-10 daily as Bran ch mg/5 mL needed for syrup Congestion /Allergies or Cough for up to 10 days. bromphenira 2020- No [id number] 5mL Take 5 mL Univers mine-pseudo 10-19 by mouth 4 i ty of ephedrine-D 00:00: 04:59 (four) [place] as M (BROMFED 00 :00 times Medical DM) 2-30-10 daily as Bran ch mg/5 mL needed for syrup Congestion /Allergies or Cough for up to 10 days. amoxicillin No [id number] 500mg Take 1 Univers 500 mg 10-19 tablet by ity of tablet 00:00: 04:59 mouth 2 [place] 00 :00 (two) Medical times [place] daily for 7 days. amoxicillin No [id number] 500mg Take 1 Univers 500 mg 10-19 tablet by ity of tablet 00:00: 04:59 mouth 2 [place] 00 :00 (two) Medical times [place] daily for 7 days. Vital Signs Vital Name Observation Time Observation Value Comments Source Systolic blood 2020-10-26 20:12:00 130 mm[Hg] [facility] 2020-10-26 20:12:00 69 mm[facility]Hg[facility] 2020-10-26 20:12:00 91 /min [facility] Body temperature 2020-10-26 20:12:00 37.22 Tamiko [facility] Respiratory rate 2020-10-26 20:12:00 17 /min [facility] Body height 2020-10-26 20:12:00 160 cm [facility] Body weight 2020-10-26 20:12:00 89.359 kg [facility] BMI 2020-10-26 20:12:00 34.90 kg/m2 [facility] Oxygen saturation in 2020-10-26 20:12:00 99 /min [facility] Arterial blood by [facility] Pulse oximetry Branch Systolic blood 2020-10-19 16:48:00 137 mm[Hg] [facility] Diastolic blood 2020-10-19 16:48:00 77 mm[Hg] [facility] Body temperature 2020-10-19 16:48:00 36.89 Tamiko [facility] Respiratory rate 2020-10-19 16:48:00 20 /min [facility] Body height 2020-10-19 16:48:00 160 cm [facility] Body weight 2020-10-19 16:48:00 89.812 kg [facility] BMI 2020-10-19 16:48:00 35.07 kg/m2 [facility] Oxygen saturation in 2020-10-19 16:48:00 98 /min University Arterial blood by [facility] Pulse oximetry Branch Procedures Procedure Date / Time Performed Performing Clinician Jesu el [id number] 2022-01-12 00:00:00 [facility] [id number] 2022-01-12 00:00:00 [facility] [id number] 2022-01-12 00:00:00 [facility] [id number] 2022-01-12 00:00:00 [facility] [id number] 2022-01-12 00:00:00 [facility] ASSIGNMENT OF BENEFITS 2020-10-19 16:17:45 Doctor Unassigned, No [facility] Encounters Start End Encounter Admission Attending Care Care Encounter Source Date/Time Date/Time Type Type Clinicians Facility Department ID 2022-01-12 2022-01-12 Inpatient Fer Ar[facility] GENS BP00 [id number] [facility] 09:37:00 18:29:00 35 [facility] 2022-01-05 2022-01-12 Outpatient Fer Arriaga [facility] ZZZB BP0 [id number] [facility] 08:00:00 09:35:00 64 [facility] 2020-10-26 2020-10-26 Urgent Provider, [facility] [id number] Univers 15:08:26 15:28:26 Care Karen Castañeda [facility] [id number] 0 itHayley Shelton [id number] [phone] [address] Office Building One 2020-10-26 2020-10-26 Outpatient Saud KELLY [facility] [id number] Univers 15:00:00 15:00:00 HAYLEY davis [facility] 2020-10-19 2020-10-19 Urgent Provider, [facility] [id number] Univers 11:19:36 12:13:03 Care Hayley Kelly [id number] ity of [place] 4.2.7.2.686 Rolando as Professio [phone] [address] One 2020-10-19 2020-10-19 Outpatient R ROBIN [facility] [id number] Univers 11:00:00 11:00:00 HAYLEY davis [facility] 2020-10-19 2020-10-19 Orders Doctor KIRAN [id number] Univers 00:00:00 00:00:00 Only Unassigned, FREYA [id number] ity of [place] [facility] 4.2.7.2.686 Rolando as [phone] [address] 2020-06-07 2020-06-07 Outpatient R EVELYNE [facility] [id number] Univers 19:00:00 19:00:00 GISELA susan [facility] 2020-06-07 2020-06-07 Laboratory Lab, Adc Fam Pob I [facility] [id number] Univers 11:43:21 12:03:21 Only Gisela Stubbs [id number] ity of [place] 4.2.7.2.686 [place] as Professio [phone] [address] 2020-06-07 2020-06-07 Letter Doctor KIRAN [id number] Univers 00:00:00 00:00:00 (Out) Unassigned, FREYA [id number] ity of [place] [facility] 4.2.7.2.686 Rolando as [phone] [address] Results Test Description Test Time Test Comments Results Result Comments Source SURGICAL 2022-01-14 10:27:00 Test Item Value Reference Range Interpretation Comme nts SURGICAL RUN DATE: (test 01/18/22 [place] [facility] - LAB PAGE 1 RUN TIME: 1333 Specimen Inquiry RUN USER: INTERFACE code = PATIENT: ALVINO HUFFMAN ACCT #: [id number] LOC: [facility] POD A U #: [id number] AGE/SX: 36/F ROOM: [facility] RE01/12/22REG DR: Fer Dinero MD : 83 BED: 1 DIS: 01/12/22 STATUS: DIS IN TLOC: SPEC #: [id number] RECD: 01/12/22 STATUS: SOUT REQ #: [id number] SAGE: 01/12/221043 [facility] DR: Fer Dinero MD ENTERED: 01/12/22 SP TYPE: SURGICAL OTHR DR: Gisselle Primary or Family Physician Leigh Bains MDORDERED: [id number]/2, 24989/4, [id number], ANATOMIC SPEC HISTOLOGY: TISSUE ID BLK PCS HUSSAIN LEV / PROCEDURE DISPOSITION ____ ___ ___ ___ ___ STOMNT A 1 1 LIVER, NOS B 1 2 TISSUES: A. STOMAC H SUBTOTAL / TOTAL RESECTION NOT TUMOR/SLEEVE - Partial Stomach B. LIVER, NOS - Liver Biopsy ADDENDUM FINDINGS Addendum #1 Entered: 01/18/22 This addendum is issued to report an immunohistochemica l stain for Helicobacter pylori isnegative (performed on specimen A with appropriate controls). Alessandra roman Signed SIGNATURE ON FILE Eric Griggs 01/18/22 981 FINAL DIAGNOSIS A. STOMACH, PARTIA L, SLEEVE [...] CONTINUED ON NEXT PAGE RUN DATE: 01/18/22 [place] [facility] - LAB PAGE 2 RUN TIME: 1333 Specimen Inquiry RUN USER: INTERFACE SPEC #: [id number] PATIENT: ALVINO LUJAN #[id number] (Continued) GROSS DESCRIPTION A. Receive d in [...] cassette B. KARISSA/marques Technical component performed at [facility], [place], [address] Immunohistochemistry: This test was developed and its performanc echaracteristics determined by this laboratory. It has not been approved nordoes it need approval by the [place] FDA. Appropriate positive and negative controlsare reviewed and judged to be acceptable. [facility] s laboratory is certified underthe Clinical Laboratory Improvement Amendments (CLIA-88) as qual [facility] high complexity clinical laboratory testing. MICROSCOPIC DESCRIPTION Unless gross onl y, the diagnosis is based upon microscopic examination. Stain ordered afterreview of H E slides. CLINICAL INFORMATION Obesity Signed SIGNATURE ON FILE Eric Griggs 01/14/22 1027 END OF REPORT UR HCG [id number] 08:58:00 Test Item Value Reference Range Interpretation Comments UR HCG QUAL (test code = HCGQLU) NEGATIVE NEGATIVE COMPREHENSIVE METABOLIC [id number] 14:09:00 Test Item Value Reference Range Interpretation [...] Range Feb code = ALKP) 2020 URINALYSIS [id number] 14:00:00 Test Item Value Reference Range Interpretation [...] NEGATIVE DIPSTICK (test code = LEUU) PROTHROMBIN [id number] 13:53:00 Test Item Value Reference Range Interpretation [...] 2.5-3.5recurren t systemic emboli sm. THROMBOPLASTIN TIME [id number] 13:53:00 Test Item Value Reference Range Interpretation Comments THROMBOPLASTIN TIME 32.5 SECONDS 23.8-34.8 N INTERPRE TATIVE PARTIAL (test code = : erapeutic PTT) range: Unfractionated heparin:55 - 80 seconds Argatroban:1.5 to 3 times the basel ine PTT CBC W/AUTO [id number] 13:42:00 Test Item Value Reference Range Interpretation [...]
[2022-09-24] MEDS ORDERED: AZITHROMYCIN 250 MG TAB ONE (22:40)
[2022-09-24 22:53] LABS: Specific Gravity 1.018 (1.005-1.030)
[2022-09-24 22:54] LABS: Specific Gravity 1.018 (1.005-1.030); Urine Bacteria None Seen /HPF (<20); Urine Bilirubin 1+ (Negative); Urine Blood Negative (Negative); Urine Clarity Clear (Clear); Urine Color Dark-Yellow (Yellow); Urine Glucose NEGATIVE (Negative); Urine Mucus Slight /HPF (None Seen); Urine Protein NEGATIVE (Negative); Urine RBC <5 /HPF (None Seen); Urine Urobilinogen 1+ (Normal)
--- NOTE | 2022-09-24 22:59 | ER ---
Nurse's Notes [facility] [place] Name: Zuleyka De La Cruz Age: 37 yrs Sex: Female : 1985 Arrival Date: 09/24/2022 Time: 22:08 Bed 11 Private MD: Diagnosis: Vaginal itching Presentation: 09/24 22:24 Chief complaint: Patient states: C/o of itching and swelling to vaginal area x 1 week. cg No discharge noted. Coronavirus screen: Vaccine status: Patient reports receiving the 2nd dose of the covid vaccine. Ebola Screen: No symptoms or risks identified at this time. Initial Sepsis Screen: Does the patient meet any 2 criteria? No. Patient's initial sepsis screen is negative. Onset of symptoms was September 16, 2022. 22:24 Method Of Arrival: Ambulatory cg 22:24 Acuity: ADRY 4 cg 22:26 Risk Assessment: Do you want to hurt yourself or someone else? Patient reports no cg desire to harm self or others. Triage Assessment: 22:50 General: Appears in no apparent distress. comfortable, well developed. cg 22:51 General: Behavior is calm. 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 Screenin:45 [facility] ED Fall Risk Assessment (Adult) History of falling in the last 3 months, cg including since admission No falls in past 3 months (0 pts). Abuse screen: Denies threats or abuse. Nutritional screening: No deficits noted. Tuberculosis screening: No symptoms or risk factors identified. Assessment: 22:37 Pain: Complains of pain in vaginal area. cg Vital Signs: 22:26 BP 143 / 98; Pulse 89; Resp 16; Temp 98.2; Pulse Ox 100% ; cg 22:48 BP 156 / 92; Pulse 75; Resp 16; Temp 98.2; cg ED Course: 22:10 Patient arrived in ED. [id number] 22:14 Brisa Hirsch FNP-C is [facility] kb 22:14 Penny Sage MD is Attending Physician. kb 22:26 Triage completed. cg 22:35 Test, Urine Sent. cg 22:35 Urinalysis w/ reflexes Sent. cg 22:45 Assist provider with pelvic exam: Performed by Brisa Torrey ROCK CLIMBING INSTRUCTOR-C Patient tolerated cg well. 22:45 Patient has correct armband on for positive identification. Side rails up X2. cg 23:14 Patient did not have IV access during this emergency room visit. kl Administered Medications: 22:36 Drug: Rocephin (cefTRIAXone) IM 500 mg Route: IM; Site: right ventrogluteal; kl 23:14 Follow up: Response: No adverse reaction kl 22:36 Drug: AZITHromycin PO 1 grams Route: PO; kl 23:14 Follow up: Response: No adverse reaction kl Outcome: 22:59 Discharge ordered by . kb 23:14 Discharged to home ambulatory. kl 23:14 Condition: stable 23:14 Discharge instructions given to patient, Instructed on discharge instructions, follow up and referral plans. Demonstrated understanding of instructions, follow-up care. 23:14 Patient left the ED. kl Signatures: Brisa Hirsch, ROCK CLIMBING INSTRUCTOR-C ROCK CLIMBING INSTRUCTOR-Ckb Aspen Elizabeth RN RN kl Garcia, Cindy, RN RN cg Jeffries, Jennifer [email or web address] Corrections: (The following items were deleted from the chart) 22:37 22:28 Pain: Complains of pain in pelvis cg cg 22:37 22:35 Pain: Complains of pain in labia cg 22:51 22:51 PMHx: Depression; cg cg 22:51 22:51 PSHx: gastric sleeve; cg cg 22:51 22:51 PSHx: tubal ligation; cg cg
--- NOTE | 2022-09-24 22:59 | EDPHYS ---
Physician Documentation [facility] Name: Zuleyka De La Cruz Age: 37 yrs Sex: Female : 1985 Arrival Date: 09/24/2022 Time: 22:08 Bed 11 Private MD: ED Physician Penny Sage HPI: 09/24 22:35 This 37 yrs old Female presents to ER via Ambulatory with complaints of STD Exposure. kb 22:35 The patient presents with perineal itching. Onset: The symptoms/episode began/occurred kb 1 week(s) ago. Modifying factors: The symptoms are alleviated by nothing, the symptoms are aggravated by nothing. Associated signs and symptoms: Pertinent positives: vaginal itching, Pertinent negatives: dysuria, urinary frequency, vaginal bleeding, vaginal discharge. Severity of symptoms: At their worst the symptoms were moderate, in the emergency department the symptoms are unchanged. The patient is sexually active, reportedly has a single partner, does not use protection during intercourse. The patient has not experienced similar symptoms in the past. The patient has been recently seen by a physician:. 22:35 Pt reports vaginal itching for one week. Denies vaginal discharge, vaginal bleeding, kb urinary symptoms. States she tried Monostat 1 twice, was seen at Urgent care and given two doses of diflucan as well as macrobid, but symptoms persist. 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 ROS: 22:30 Constitutional: Negative for fever, chills, and weight loss. kb 22:30 : Positive for vaginal discharge, Negative for urinary symptoms, vaginal bleeding, vaginal discharge. 22:30 All other systems are negative. Exam: 22:30 Constitutional: This is a well developed, well nourished patient who is awake, alert, kb and in no acute distress. Head/Face: Normocephalic, atraumatic. ENT: Moist Mucous membranes Respiratory: Respirations even and unlabored. No increased work of breathing. Talking in full sentences Abdomen/GI: Soft, non-tender. No distention Female : Normal external genitalia. Skin: Warm, dry with normal turgor. Normal color. MS/ Extremity: Pulses equal, no cyanosis. Neurovascular intact. Full, normal range of motion. Neuro: Awake and alert, GCS 15, oriented to person, place, time, and situation. Moves all extremities. Normal gait. Vital Signs: 22:26 BP 143 / 98; Pulse 89; Resp 16; Temp 98.2; Pulse Ox 100% ; cg 22:48 BP 156 / 92; Pulse 75; Resp 16; Temp 98.2; cg MDM: 22:14 Patient medically screened. kb 22:34 Differential diagnosis: yeast infection, STI, UTI. Data reviewed: vital signs, nurses kb notes. 22:58 Counseling: I had a detailed discussion with the patient and/or guardian regarding: the kb historical points, exam findings, and any diagnostic results supporting the discharge/admit diagnosis, lab results, the need for outpatient follow up, an OB/Gyne specialist, to return to the emergency department if symptoms worsen or persist or if there are any questions or concerns that arise at home. 09/24 22:23 Order name: Urinalysis w/ reflexes; Complete Time: 22:57 kb 09/24 22:23 Order name: Test, Urine; Complete Time: 22:57 kb Administered Medications: 22:36 Drug: Rocephin (cefTRIAXone) IM 500 mg Route: IM; Site: right ventrogluteal; kl 23:14 Follow up: Response: No adverse reaction kl 22:36 Drug: AZITHromycin PO 1 grams Route: PO; kl 23:14 Follow up: Response: No adverse reaction kl Disposition: 09/25 07:06 STAFF ATTESTATION STATEMENT: I was immediately available onsite in the emergency sd2 department for consultation in the care of this patient. I did not see or examine this patient. Penny Sage MD. Disposition Summary: 09/24/22 22:59 Discharge Ordered Location: Home kb Condition: Stable kb Diagnosis - Vaginal itching kb Followup: kb - With: Emergency Department - When: As needed - Reason: Worsening of condition Followup: kb - With: Private Physician - When: 2 - 3 days - Reason: Recheck today's complaints, Continuance of care, Re-evaluation by your physician Discharge Instructions: - Discharge Summary Sheet kb - Vaginal Yeast Infection, Adult kb Forms: - Medication Reconciliation Form kb - Thank You Letter kb - Antibiotic Education kb - Prescription Opioid Use kb - Work release form Signatures: Dispatcher [employer] Brisa Velazquez FNP-C STOCK TURNER-CkAspen North, RN Ladi Richardson RN RN cg Dunlop, Stephanie, MD MD sd2 Corrections: (The following items were deleted from the chart) 09/24 2251 22:51 PMHx: Depression; cg cg 22:51 PSHx: gastric sleeve; cg 22:51 PSHx: tubal ligation; cg cg
[2022-09-24 23:30] VITALS: TEMP 98.2; O2SAT 100
[2022-09-24 23:31] VITALS: BP 156/92
== END 2022-09-24 23:14 | disposition home or self-care (01) ==
LOC: ER 22:08
DX: L29.8 Other pruritus (principal)
CPT/HCPCS: 81001; 81025; 96372; 99284

== ENCOUNTER 2022-12-20 19:52 | Emergency (ER) | payer OTHER ==
--- OUTSIDE RECORDS SUMMARY | 2022-12-20 19:56 | XMS REPORT | Continuity of Care Document ---
:1985 Author Organization [facility] t Address [address] [place] [address] Care Team Providers Name Role Phone PCP, PATIENT DOES NOT HAVE A Primary Care Physician Unavaila ble Charly Attending Clinician Unavailable Rodney Dinero Attending Clinician Unavailable Provider, [facility] Attending Clinician Unavailable Garry BLOUNT, Karen Boateng Attending Clinician Hayley Mercado Attending Clinician HAYLEY KELLY Attending Clinician Unavailable Doctor Unassigned, Humphrey Attending Clinician Unavailable GISELA STUBBS Attending Clinician Unavailable Lab, Adc Fam Pob I Attending Clinician Unavailable Gisela Frank Attending Clinician Charly Admitting Clinician Unavailable Rodney Dinero Admitting Clinician Unavailable Physician, No Primary or Family Admitting Clinician Unavaila ble Payers Payer Name Policy Type Policy Number Effective Date Expiration Date S kareem [employer] [id number] () Problems Condition Condition Condition Status Onset Resolution Last Treating Co mments Source Name Details Category Date Date Treatment Clinician Date No known No known Disease Unive rs active active ity of problems problems [facility] Allergies, Adverse Reactions, Alerts Allergy Allergy Status Severity Reaction(s) Onset Inactive Treating Comm ents Source Name Type Date Date Clinician Sulfa DA Active [place] HIVES [facility] (Sulfona 8 [facility] 00:00: [facility] Antibiot 00 are ics) [facility] Center Sulfa Propensi Active Hives Univers Dyne ty to 6-07 ity of adverse 00:00: [place] reaction 00 Medical s Branch SULFA DRUG Active High Hives Univers DYNE 6-07 ity of 00:00: [place] 00 Medical Branch NO KNOWN Drug Active Univers ALLERGIE Class ity of S [place] [facility] [place] Social History Social Habit Start Date Stop Date Quantity Comments Source Exposure to Not sure [facility] SARS-CoV-2 (event) Medica l Branch Tobacco use and 2020-10-26 2020-10-26 Never used [facility] exposure 00:00:00 00:00:00 [facility] Branch Sex Assigned At [birth year] [facility] 00:00:00 00:00:00 Medical Branch Smoking Status Start Date Stop Date Source Never smoker [facility] Unknown if ever smoked [facility] Medications Ordered Filled Start Stop Current Ordering Indication Dosage Frequency Signature Comments Components Source Medication Medication Date Date Medication? Clinician (SIG) Name Name methylPREDN 2020- No [id number] Take by Univers ISolone 4 10-26 14334 mouth ity of mg tablets 00:00: 04:59 SEE-INSTRU [place] 00 :00 CTIONS for Medical 6 days. Branch follow package directions SERTraline 2021- No 50mg Take 50 mg Univers (ZOLOFT) 50 10-19 by mouth ity of mg tablet 00:00: 04:59 daily. [place] 00 : Medical Branch SERTraline 2021- No 50mg Take 50 mg Univers (ZOLOFT) 50 10-19 by mouth ity of mg tablet 00:00: 04:59 daily. [place] 00 :00 [facility] Branch bromphenira 2020- No [id number] 5mL Take 5 mL Univers mine-pseudo 10-19 by mouth 4 i ty of ephedrine-D 00:00: 04:59 (four) Rol[place] as M (BROMFED 00 :00 times Medical DM) 2-30-10 daily as Bran ch mg/5 mL needed for syrup Congestion /Allergies or Cough for up to 10 days. bromphenira 2020- No [id number] 5mL Take 5 mL Univers mine-pseudo 10-19 by mouth 4 i ty of ephedrine-D 00:00: 04:59 (four) [place] as M (BROMFED 00 :00 times Medical DM) 2-30-10 daily as Bran ch mg/5 mL needed for syrup Congestion /Allergies or Cough for up to 10 days. amoxicillin 2020- No [id number] 500mg Take 1 Univers 500 mg 10-19 tablet by ity of tablet 00:00: 04:59 mouth 2 [place] 00 :00 (two) Medical times Branch daily for 7 days. amoxicillin 2020- No [id number] 500mg Take 1 Univers 500 mg 10-19 tablet by ity of tablet 00:00: 04:59 mouth 2 [place] 00 :00 (two) Medical times [place] daily for 7 days. Vital Signs Vital Name Observation Time Observation Value Comments Source Body weight 2020-10-26 20:12:00 89.359 kg [facility] BMI 2020-10-26 20:12:00 34.90 kg/m2 [facility] Oxygen saturation in 2020-10-26 20:12:00 99 /min [facility] Arterial blood by [facility] Pulse oximetry Branch Systolic blood 2020-10-26 20:12:00 130 mm[Hg] [facility] Diastolic blood 2020-10-26 20:12:00 69 mm[Hg] Unive rsity [facility] Heart rate 2020-10-26 20:12:00 91 /min [facility] Body temperature 2020-10-26 20:12:00 37.22 [facility] 2020-10-26 20:12:00 17 /min [facility] Body height 2020-10-26 20:12:00 160 cm [facility] Systolic blood 2020-10-19 16:48:00 137 mm[Hg] [facility] Diastolic blood 2020-10-19 16:48:00 77 mm[Hg] [facility] Body temperature 2020-10-19 16:48:[address] [facility] Respiratory rate 2020-10-19 16:48:00 20 /min [facility] Body height 2020-10-19 16:48:00 160 cm [facility] Body weight 2020-10-19 16:48:00 89.812 kg [facility] BMI 2020-10-19 16:48:00 35.07 kg/m2 [facility] Oxygen saturation in 2020-10-19 16:48:00 98 /min [facility] Arterial blood by [facility] Pulse oximetry Branch Procedures Procedure Date / Time Performed Performing Clinician [facility] nikko [id number] 2022-01-12 00:00:00 BRICE [facility] [id number] 2022-01-12 00:00:00 [facility] [id number] 2022-01-12 00:00:00 [facility] [place] [facility] [id number] 2022-01-12 00:00:00 [facility] [id number] 2022-01-12 00:00:00 [facility] ASSIGNMENT OF BENEFITS 2020-10-19 16:17:45 Doctor Unassigned, No [facility] Encounters Start End Encounter Admission Attending Care Care Encounter Source Date/Time Date/Time Type Type Clinicians Facility Department ID 2022-09-27 2022-09-27 Outpatient GC_SWHAOMC_ PRIV PRIV [id number] [facility] 00:00:00 00:00:00 Andrew_Vicky [id number] Medica l 2022-09-26 2022-09-26 Outpatient GC_SWHAOMC_ PRIV PRIV [id number] [facility] 00:00:00 00:00:00 Black_D [id number] Medica l 2022-09-25 2022-09-25 Outpatient PRIV PRIV [id number] [facility] 00:00:00 00:00:00 [id number] Medica l 2022-01-12 2022-01-12 Inpatient Rodney Arriaga [facility] GENS [id number] [facility] 09:37:00 18:29:00 35 [facility] 2022-01-05 2022-01-12 Outpatient Rodney Arriaga [facility] ZZZB [id number] [facility] 08:00:00 09:35:00 64 [facility] 2020-10-26 2020-10-26 Urgent Provider, [facility] [id number] Univers 15:08:26 15:28:26 Care [facility] 350.1.13.1 0 ity of Hayley Kelly 4.2.7.2.686 [place] Professio [phone] [place] dicma nal [address] 2020-10-26 2020-10-26 Outpatient Saud KELLY [facility] [id number] Univers 15:00:00 15:00:00 HAYLEY davis [facility] 2020-10-19 2020-10-19 Urgent Provider, [facility] [id number] Univers 11:19:36 12:13:03 Care Hayley Kelly Absio 350.1.13.10 ity of [place] 4.2.7.2.686 [place] as Professio [phone] [place] [address] Office [facility] One 2020-10-19 2020-10-19 Outpatient Saud KELLY [facility] [id number] Univers 11:00:00 11:00:00 HAYLEY davis [facility] 2020-10-19 2020-10-19 Orders Doctor BECK [id number] Univers 00:00:00 00:00:00 Only Unassigned, FREYA 350.1.13.10 ity of Humphrey [facility] 4.2.7.2.686 [place] as [phone] [address] 2020-06-07 2020-06-07 Outpatient Saud STUBBS [facility] [id number] Univers 19:00:00 19:00:00 GISELA davis [facility] 2020-06-07 2020-06-07 Laboratory Lab, Adc Fam Pob I [facility] 1.2. [id number] [id number] Univers 11:43:21 12:03:21 Only Basil Gisela Absio 350.1.13.10 ity of [place] 4.2.7.2.686 [place] as Professio [phone] [facility] [address] 2020-06-07 2020-06-07 Letter Doctor KIRAN 1.2.840.114 [id number] Univers 00:00:00 00:00:00 (Out) Unassigned, FREYA 350.1.13.10 ity of [place] [facility] 4.2.7.2.686 [place] as [phone] [facility] [address] [place] Results Test Description Test Time Test Comments Results Result Comments Source SURGICAL 2022-01-14 10:27:00 Test Item Value Reference Range Interpretation Commnikko simms SURGICAL RUN DATE: (test 01/18/22 [facility] - LAB PAGE 1 RUN TIME: 1333 Specimen Inquiry RUN USER: INTERFACE code = PATIENT: SR) NAZARIO SANZ ACCT #: [id number] LOC: P.6S POD A U #: [id number] AGE/SX: 36/F ROOM: [facility] RE01/12/22REG DR: Rodney Dinero MD : 83 BED: 1 DIS: 01/12/22 STATUS: DIS IN TLOC: SPEC #: [id number] RECD: 01/12/22 STATUS: MARTHA PRYOR #: [id number] SAGE: 01/12/221043 [facility] DR: Rodney Dinero MD ENTERED: 01/12/22 SP TYPE: SURGICAL OTHR DR: Gisselle Primary or Family Physician Leigh Murphy MDORDERED: 12128/2, 74114/4, 73611, ANATOMIC SPEC HISTOLOGY: TISSUE ID BLK PCS [...] Signed SIGNATURE ON FILE Eric Griggs 01/18/22 7041 FINAL DIAGNOSIS A. STOMACH, PARTIA L, SLEEVE [...] CONTINUED ON NEXT PAGE RUN DATE: 01/18/22 [facility] - LAB PAGE 2 RUN TIME: 1333 Specimen Inquiry RUN USER: INTERFACE SPEC #: [id number] PATIENT: NAZARIO SANZ #[id number] (Continued) GROSS DESCRIPTION A. Receive d in [...] with the patient's name, date of and [facility] [place] "liver biopsy". It consists of a morales brown wedge shaped liver fragmentmeasuring 1.8 x 0.8 x 0.6 cm. The specimen is bisected, revealing a morales pink smooth cutsurface. The specimen is submitted en tirely in cassette B. KARISSA/marques Technical component performed at [facility] [employer], [address] Immunohistochemistry: This test was developed and its performanc echaracteristics determined by this laboratory. It has not been approved nordoes it need approval by the [place] FDA. Appropriate positive and negative controlsare reviewed and judged to be acceptable. [facility] s laboratory is certified undert Clinical Laboratory Improvement Amendments (CLIA-88) as qual ified toperform high complexity clinical laboratory testing. MICROSCOPIC DESCRIPTION Unless gross onl y, the diagnosis is based upon microscopic examination. Stain ordered afterreview of H E slides. CLINICAL INFORMATION Obesity Signed SIGNATURE ON FILE Eric Griggs 01/14/22 1027 END OF REPORT UR HCG [id number] 08:58:00 Test Item Value Reference Range Interpretation Comments UR HCG QUAL (test code = HCGQLU) NEGATIVE NEGATIVE COMPREHENSIVE METABOLIC [id number] 14:09:00 Test Item Value Reference Range Interpretation [...] note: Ne w PHOSPHATASE (test Reference Range Jun code = ALKP) 2020 URINALYSIS [id number] 14:00:00 Test Item Value Reference Range Interpretation [...] NEGATIVE DIPSTICK (test code = LEUU) PROTHROMBIN [id number] 13:53:00 Test Item Value Reference Range Interpretation [...] 2.5-3.5recurren t systemic emboli sm. THROMBOPLASTIN TIME [id number] 13:53:00 Test Item Value Reference Range Interpretation Comments THROMBOPLASTIN TIME 32.5 SECONDS 23.8-34.8 N INTERPRE TATIVE PARTIAL (test code = DATA:Th erapeutic PTT) range: Unfractionated heparin:55 - 80 seconds Argatroban:1.5 to 3 times the basel ine PTT CBC W/AUTO [id number] 13:42:00 Test Item Value Reference Range Interpretation [...] = BA#) 0.04 x10 3/uL 0.0-0.20 N Notes Date/Time Note Provider Source 2022-01-26 12:22:00-00:00 [id number] [facility] [address] [place] [address] PATIENT NAME: NAZARIO SANZ ADMIT DATE: 01/12 ACCOUNT NO: [id number] ROOM NO: [facility] AGE: 37 REPORT TYPE: DISCHARGE SUMMARY SEX: F ADMITTING PHYSICIAN:Rodney Dinero MD ATTENDING PHYSICIAN:Rodney Dinero MD ADMISSION DATE: 01/12/2022 DISCHARGE DATE: 01/12/2022 ADMISSION DIAGNOSES: 1. Morbid obesity. 2. Reflux. 3. Sleep apnea. 4. Hiatal hernia. DISCHARGE DIAGNOSES: 1. Morbid obesity. 2. Reflux. 3. Sleep apnea. 4. Hiatal hernia. 5. Hepatomegaly. PROCEDURE PERFORMED: Please refer to operative r eport. HOSPITAL COURSE: Postoperatively, the tim mckay was admitted up to the floor for postoperative care. The patient required IV pain medications and antiemetics. On the floor, the patient remained afebrile with stable vital signs. The patient began tolerating a bariatric liquid diet without difficulty and was subsequently discharged home . The patient was ambulating independently and pain was controlled as well with oral pain meds. DISCHARGE INSTRUCTIONS: 1. The patient is to call or return to the ER fo r any shortness of breath, abdominal or chest pain, fever, chills, nausea, vomiting, or really for any other complaints. 2. The patient is instructed to continue to ambu late at home. 3. The patient is to shower, but not to take a b ath or soak the incisions. 4. The patient is to maintain a bariatric liquid diet as per the instruction sheet. 5. The patient is to follow up with me in 2 week s. 6. The patient's medications are per the reconci liation sheet. Dictated By: Rodney Dinero MD WT: DS:MELISSA/BRICE/JAY Conf#: [id number]/DID#: [id number] PATIENT NAME: NAZARIO SANZ [id number] Authenticated by Rodney Dinero MD On 022 10:10:25 AM Electronically Signed by Rodney Dinero MD on at 1010 PATIENT NAME: NAZARIO SANZ [id number] 17:18:00-00:00 [id number] [facility] [address] [place] [address] PATIENT NAME: NAZARIO SANZ ADMIT DATE: 01/12 ACCOUNT NO: [id number] ROOM NO: P.0611 AGE: 37 REPORT TYPE: 360 - QUERY RESPONSE DOCUMENT SEX: F ADMITTING PHYSICIAN:Rodney Dinero MD ATTENDING PHYSICIAN:Rodney Dinero MD Provider Query QUERY TEXT: Sequencing Diagnosis Occasioning Admission 360MD Query related questions should be directed to:Enrrique manzanares [facility] Coding Query Helpline Based on your clinical judgment of the documente d diagnoses and clinical indicators listed below, please spe cify the condition(s), after study, that occasioned the admission to the hospital. 1,morbidly obese 2,hernia repair The patient's Clinical Indicators include: Medical Reason: post op-ADT PREOPERATIVE DIAGNOSES: 1.Hiatal hernia. 2.Reflu x esophagitis. 3.Sleep apnea. 4.Morbid obesity (b aline mass index 37.6).-OPERATIVE REPORT 01/12/2022 with morbid obesity (212 pounds, 63 inches tall, 94.5 kg, BMI 36.9 kilogram per meter square), hiatal hernia with esophagitis, who und erwent laparoscopic sleeve gastrectomy and hiatal lindsay ia repair today.-CONSULTATION REPORT 01/12/2022 Pt is morbidly obese with the above states co mo rbidities who is seeking weight loss via gastric sleeve,h iatal hernia repair EGD with hiatal hernia and esophagitis Options provided: -- Multiple diagnoses, Please list the diagnoses occasioning the admission. -- Other - I will add my own diagnosis -- Dismiss - Not applicable / Not valid -- Dismiss - Clinically unable to determine / Un known -- Assign to another provider QUERY RESPONSE: The patient has multiple diagnoses occasioned th e admission. obesity Query created by: Cortney Sandhu on 01/18/2022 6:51 AM Electronically Signed by Rodney Dinero MD on at 1718 PATIENT NAME: NAZARIO SANZ [id number] 14:05:00-00:00 [id number] [facility] [address] [place] [address] patient name: nazario sanz admit date: 01/12 account no: [id number] room no: [facility] age: 36 report type: consultation sex: f admitting physician:rodney dinero md attending physician:rodney dinero md consultation date: 01/12/2022 consulting physician: leigh murphy md internal medicine consultation referring physician: rodney dinero md reason for consultation: postoperative medical m anagement. history of present illness: this is a 36 -year-old female with morbid obesity (212 pounds, 63 inches tall, 94.5 kg, bm i 36.9 kilogram per meter square), hiatal hernia with esophagitis, who und erwent laparoscopic sleeve gastrectomy and hiatal herni a repair today. the patient tolerated the procedure without complication. we are consulted for posto perative medical management. past medical history: 1. morbid obesity. 2. gastroesophageal reflux disease, hiatal herni a. past surgical history: tubal ligation. family history: heart disease, hypertension, alc oholism, mental illness, cancer. allergies: sulfa. home medications: zoloft. social history: she consumes 2 alcoholic drinks per week. she denied tobacco or illicit drug use. review of systems: no fever, no chills, no cough , no cold, no shortness of breath. no chest pain. no abdominal pain, diarrh ea, or constipation. no dysuria or urinary retention. no skin rash. no b leeding tendencies. positive depression. no headache or dizziness. no hearing or visual disturbances. no muscle or joint pain. no numbness or tingling se nsation. no polyuria or polydipsia. physical examination: general appearance: morbid obesity, not in distr ess. vital signs: temperature 36.4, heart rate of 77, respiratory rate 16, blood pressure 127/82, spo2 95% on 2 liters per minute via nasal cannula. patient name: nazario sanz [id number] head and neck: pink conjunctivae, anicteric scle marilyn. negative jvd. negative lymphadenopathy. no goiter. no oral lesion. chest: clear. heart: regular rate and rhythm. abdomen: soft, nontender. positive bowel sounds. extremities: no edema, no cyanosis, no clubbing, no tenderness. neurologic: no gross motor or sensory deficits. laboratory data: preoperative lab done on 2021. wbc 8.3, hemoglobin 13.9, and platelet count 270, bun 18, creatinine 0.6. assessment and plan: 1. morbid obesity, hiatal hernia, reflux esophag itis status post laparoscopic sleeve gastrectomy and hiatal hernia repair. con tinue pain control. encourage incentive spirometry and ambulation. t he patient will be started on clear liquid diet. 2. obstructive sleep apnea. the patient may use her cpap machine if available. 3. the patient will be started on lovenox in a.m . for deep venous thrombosis prophylaxis. 4. care coordinated with rn. dictated by: leigh murphy md wt: con:melissa/tomasa/nts dd: 01/12/2022 14:05:29 dt: 01/12/2022 20:09:27 conf#: [id number]/did#: [id number] authenticated and edited by leigh murphy md on 01/13/22 4:09:50 pm electronically signed by leigh murphy md on 06/05 at 0411 patient name: nazario sanz [id number] 10:50:00-00:00 [id number] [place] [address] PATIENT NAME: NAZARIO SANZ ADMIT DATE: 01/12 ACCOUNT NO: [id number] ROOM NO: P.0611 AGE: 37 REPORT TYPE: OPERATIVE REPORT SEX: F ADMITTING PHYSICIAN:Rodney Dinero MD ATTENDING PHYSICIAN:Rodney Dinero MD OPERATION DATE: 01/12/2022 SURGEON: Rodney Dinero MD PREOPERATIVE DIAGNOSIS: Pain, status post sleeve gastrectomy. POSTOPERATIVE DIAGNOSIS: Pain, status post sleev e gastrectomy. PROCEDURE PERFORMED: Abdominal wall catheter ganesh cement x2. ANESTHESIA: General endotracheal anesthesia. ESTIMATED BLOOD LOSS: Minimal. COMPLICATIONS: None. INDICATIONS: This is a patient undergoing the ab ove stated surgery. Postoperatively, decreased narcotic use is kaylyn ed to prevent causing respiratory distress in this patient. Therefore, the abdominal wall catheters will be placed to help decrease the postoperativ e pain, and subsequently narcotic use. OPERATIVE COURSE: Through the left subcostal inc ision, I tunneled two 8-inch sheaths and tunnelers in the prefascial space, one superior to the umbilicus and one inferior to the umbilicus. The umbilicus is the site of maximal pain because this is where the largest incisions are, the fascia is closed and the specimen is extracted. Therefore, this is the si te of maximal pain. The tunnelers were removed and catheters wer e advanced through the sheaths and the sheaths were peeled away. The catheters will per form a partial abdominal wall block around this area. This will decrease the p ostoperative pain and subsequent narcotic use. The catheters were attached to a pump filled with 0.5% Marcaine. This was held in place with St jesús-Strips and Tegaderm. There were no complications. Dictated By: Rodney Dinero MD WT: OP:PPIERRE/BRICE/JAY Conf#: [id number]/DID#: [id number] Authenticated by Rodney Dinero MD On 022 10:09:53 AM PATIENT NAME: NAZARIO SANZ [id number] Electronically Signed by Rodney Dinero MD on at 1009 PATIENT NAME: NAZARIO SANZ [id number] 10:49:00-00:00 [id number] [facility] [address] [place] [address] [place] [address] PATIENT NAME: NAZARIO SANZ ADMIT DATE: 01/12 ACCOUNT NO: [id number] ROOM NO: [facility] AGE: 37 REPORT TYPE: OPERATIVE REPORT SEX: F ADMITTING PHYSICIAN:Rodney Dinero MD ATTENDING PHYSICIAN:Rodney Dinero MD OPERATION DATE: 01/12/2022 SURGEON: Rodney Dinero MD PAINT TESTER: KAILEY Jorgensen PREOPERATIVE DIAGNOSES: 1. Hiatal hernia. 2. Reflux esophagitis. 3. Sleep apnea. 4. Morbid obesity (body mass index 37.6). POSTOPERATIVE DIAGNOSES: 1. Hiatal hernia. 2. Reflux esophagitis. 3. Sleep apnea. 4. Morbid obesity (body mass index 37.6). 5. Hepatomegaly. PROCEDURES PERFORMED: 1. Laparoscopic sleeve gastrectomy. 2. Laparoscopic liver wedge biopsy. 3. Laparoscopic hiatal hernia repair. 4. EGD. 5. Bilateral transverse abdominis plane blocks. ANESTHESIA: General endotracheal anesthesia. ESTIMATED BLOOD LOSS: 10 mL. COMPLICATIONS: None. FINDINGS: The patient had an enlarged an d fatty infiltrated liver. In order to rule out SWAIN, liver wedge biopsy was pe rformed. The patient had a 3-cm hiatal hernia, which we dissected o ut and repaired primarily. At the completion of the case, intraoperative EGD was performed. There was no sign of bleeding or leaks. INDICATIONS: This is a morbidly obese patient wi th multiple comorbidities who comes in seeking weight loss surgery in the form of a gastric sleeve. The patient underwent our extensive preoperative kip ting and was deemed an appropriate candidate. The patient understands t he risks, benefits, and alternatives of the above-st ated procedure which includes but are not limited to pain, infection, bleeding, l eak, pulmonary embolism, hernia occurrence, failure PATIENT NAME: NAZARIO SANZ [id number] to lose greater than 25% the excess body weight, need for future procedures, risk of weight regain, malnutrition and vitamin deficiencies and a mortality rate of approximately 1 in 400 and the patient a greed to proceed. PROCEDURE DETAILS: The patient was given Rocephi n 1 g IV and 40 mg of subcutaneous Lovenox in the preoperative holding area. The patient was brought to the operating room and placed in the supine p osition on the operating room table. SCDs were applied. General endotracheal a nesthesia was induced. An orogastric tube was placed and the patie nt was prepped and draped in the usual sterile fashion. A 5-mm lateral left subcostal i ncision was made and an Optiview trocar and endoscope were advanced down through the layers of the abdominal wall and into the peritoneum. We insuf flated the abdomen and no underlying injuries were noted. Under direct vis ualization, a 5-mm trocar was placed in the right subcostal space as well as o ne supraumbilically. A 15-mm trocar was placed to the left of the supraumbili dorothy one. To help decrease the patients postoperative pain and subsequently renetta cotic use and the associated risk of respiratory depression, we performed keke ateral transverse abdominis plane blocks. Using 60 mL of 0.5% Naropin, we in jected half to this amount under each subcostal margin from dermatome level s T6 to T10. This was done under laparoscopic visualiza tion and will perform an upper abdominal wall block. With the liver lifted up we could see the patien t?s hiatal hernia. Using the En-Seal we opened up the gastrohepatic ligament. The hernia sac along the medial right thais was opened up, and we bluntly dissected the right thais free of the incarcerated stomach and esophagus. The Angle of His was then dissected off the left thais and we were able to open u p the hernia sac along the medial left thais as well. We were then able to dissect out t he hiatus completely in a 360 degree fashion. We then circ umferentially dissected around the esophagus taking down all the connective tissue with the En-Seal, going up 7 cm into the mediastinum. We reduced the paraesophageal fat a nd tissue as well as 2 cm of the esophagus back into the peritoneum. The gastroesophageal junction was also noted to be within the peritoneum. We then reapp roximated the hiatus posteriorly using 2, 2-0 Surgidacs on the EndoSt itch in a figure of eight fashion. After the closure, there was just enoug h space to pass a grasper between the closure and the esophagus. As we examined the abdomen, we noted the patient's liver was fatty infiltrated and also enlarged. On the lateral left lobe of t he liver, we used EnSeal to wedge out a 1 x 1 cm piece of liver and passed off as specimen. There was good hemostasis obtained. We identified the pylorus and approximately 4 cm proximal to it, we opened up the gastrocolic ligament. We took down the great er curve of the stomach with the EnSeal, obtaining good hemostasis. W e stopped when we reached the inferior pole of the spleen. We then removed the orogastric tube and a 34-Kazakh Bougie was advanced down into the pylorus. We t hen advanced a 60 mm black staple-load with SeamGuard strips and ar ticulated it at a 45 degrees angle going up towards the spleen. We fired it from about 4 cm proximal to the pylorus with care taken to stay outside the vessels at the incisura and the Bougie as well. We then fired 2 purple staple loads with SeamGuard strips staying adjacent to the Bougie and going up towards the angle of His. The EnSeal was used to completely mobilize the a ngle of His and take down the short gastrics. We then fired a last pur ple staple-load with SeamGuard strips, PATIENT NAME: NAZARIO SANZ [id number] staying just lateral to the esophagus to prevent stapling upon the GE junction. We then performed an intraoperative EGD to evaluate for bleeding or leak. With the sleeve covered in saline, a mouthguard was p laced and the endoscope was introduced down transorally under direct visualization and insufflation. At the GE junction, we noted that t here was a tiny dog ear and advanced down through a narrow gastric sleeve around the angularis and i nto the first portion of the duodenum. There was no sign of bleeding or leak, and laparoscopically, we saw no bubbles. Subsequently, we suctioned out the i nsufflation and withdrew the endoscope and laparoscopically, we suctioned out the irrigation as well. A 2-0 Vicryl stitch was used to pexy the cut edg e of the omentum back to the staple line adjacent to the angularis to help prevent kinking of the sleeve. I then removed the specimen through the 15 mm troc ar site. Using #1 Vicryls, we reapproximated the fascia he re under direct visualization with a suture passer. I then desufflated the abdomen and withd rew the remaining trocars. The skin at all port sites was closed with 4-0 Monocryl in a subcuticular fashion and Dermabond was applied as a dressing. The sponge, needle, and instrument counts were correct and there were no complications. Dictated By: Rodney Dinero MD WT: OP:MELISSA/BRICE/JAY Conf#: [id number]/DID#: [id number] Authenticated by Rodney Dinero MD On 022 10:10:19 AM Electronically Signed by Rodney Dinero MD on at 1010 PATIENT NAME: NAZARIO SANZ [id number]
--- NOTE | 2022-12-20 21:37 | ER ---
Nurse's Notes [facility] Name: Zuleyka De La Cruz Age: 37 yrs Sex: Female : 1985 Arrival Date: 12/20/2022 Time: 19:52 Bed IW2 Private MD: Diagnosis: Presentation: 12/20 20:10 Chief complaint: Patient states: Abdominal cramping since 1430, has gotten worse, along nj1 with vomiting x4. Had gastric sleeve about a year ago. Coronavirus screen: Vaccine status: Patient reports receiving the 2nd dose of the covid vaccine. Ebola Screen: Patient denies travel to an Ebola-affected area in the 21 days before illness onset. Initial Sepsis Screen: Does the patient meet any 2 criteria? No. Patient's initial sepsis screen is negative. Does the patient have a suspected source of infection? No. Patient's initial sepsis screen is negative. Risk Assessment: Do you want to hurt yourself or someone else? Patient reports no desire to harm self or others. Onset of symptoms was December 20, 2022 at 14:30. 20:10 Method Of Arrival: Ambulatory [facility] 20:10 Acuity: ADRY 3 nj Historical: - Allergies: 20:14 Sulfa (Sulfonamide Antibiotics); nj1 20:14 Amoxicillin; nj1 - PSHx: 20:14 Gastric sleeve; Ligation of fallopian tube; nj1 - Immunization history:: Client reports receiving the 2nd dose of the Covid vaccine. - Social history:: Smoking status: Patient denies any tobacco usage or history of. Assessment: 21:30 Reassessment: Patient left prior to treatment. Has told registration that she was able nj to have a bowel movement which made her feel better, so she just wanted to go back home and rest. This RN notified charge nurse and assigned ED provider. Vital Signs: 20:10 BP 139 / 83; Pulse 59; Resp 18; Temp 98.8(TE); Pulse Ox 100% on R/A; Weight 72.57 kg; nj1 Height 5 ft. 3 in. ; Pain 10/10; 20:10 Body Mass Index 28.34 (72.57 kg, 160.02 cm) [facility] 20:10 Pain Scale: Adult [facility] ED Course: 19:53 Patient arrived in ED. kj1 20:05 Amanuel Vasquez PA is PHCP. cp 20:05 Dez Ponce MD is Attending Physician. cp 20:14 Triage completed. nj1 20:15 Arm band placed on right wrist. nj1 22:00 Dez Ponce MD is Attending Physician. sp4 Administered Medications: No medications were administered Outcome: 21:36 Patient left the ED. nj1 22:10 Patient left the ED. cm10 Signatures: Amanuel Vasquez PA PA Marybel Daniel kj1 Dez Ponce MD MD sp4 Jayne Foreman, RN RN nj1 Linnette Carballo RN RN cm10
--- NOTE | 2022-12-20 22:11 | EDPHYS ---
Physician Documentation [facility] Name: Zuleyka De La Cruz Age: 37 yrs Sex: Female : 1985 Arrival Date: 12/20/2022 Time: 19:52 Bed IW2 Private MD: ED Physician Dez Ponce HPI: 12/20 22:01 This 37 yrs old Female presents to ER via Ambulatory with complaints of sp4 POSSIBLE BOWEL OBSTRUCTION. 12/21 04:08 Patient apparently left out of the waiting area prior to my assessment. At this time sp4 patient status is eloped. Historical: - Allergies: 12/20 20:14 Sulfa (Sulfonamide Antibiotics); nj1 20:14 Amoxicillin; nj1 - PSHx: 20:14 Gastric sleeve; Ligation of fallopian tube; nj1 - Immunization history:: Client reports receiving the 2nd dose of the Covid vaccine. - Social history:: Smoking status: Patient denies any tobacco usage or history of. Vital Signs: 20:10 BP 139 / 83; Pulse 59; Resp 18; Temp 98.8(TE); Pulse Ox 100% on R/A; Weight 72.57 kg; nj1 Height 5 ft. 3 in. ; Pain 10/10; 20:10 Body Mass Index 28.34 (72.57 kg, 160.02 cm) nj1 20:10 Pain Scale: Adult nj1 MDM: 20:33 Patient medically screened. cp 12/20 20:50 Order name: IV Saline Lock cp 12/20 20:50 Order name: Labs collected and sent cp Administered Medications: No medications were administered Disposition Summary: 12/20/22 21:36 Eloped Disposition: after being seen by provider nj1 Reason: (see nurse's notes) nj1 Signatures: Dispatcher [employer] EDMS Amanuel Vasquez PA PA cp Potepalov, Sergey, MD MD sp4 Jayne Foreman RN RN nj1
[2022-12-20 22:28] VITALS: BP 139/83; TEMP 98.8; O2SAT 100
== END 2022-12-20 22:10 | disposition left against medical advice (07) ==
LOC: ER 19:52
DX: R10.9 Unspecified abdominal pain (principal); R11.10 Vomiting, unspecified; Z53.29 Procedure and treatment not carried out because of patient's decision for other reasons